=== PATIENT | female | born 1965 | race Caucasian/White ===

== ENCOUNTER → 2017-10-20 16:21 | Outpatient (CLI) | payer MEDICAID, SELFPAY ==
[2017-10-20 17:20] LABS: Absolute Lymphocyte Count 1.88 X10^3/ul (0.83-4.51); Absolute Neutrophil Count 2.3 X10^3/uL (2.0-7.7); Basophil# 0.04 X10^3/uL; Basophil% 0.8 % (0-1); Eosinophil# 0.14 X10^3/uL; Eosinophils% 2.8 % (0-5); Hemoglobin 13.2 g/dl (12.0-15.0); Lymphocyte # 1.88 X10^3/ul (4.0); Lymphocyte % 38.1 % (19-41); Mean Corp Hgb Conc 32.2 g/gl (32-36); Mean Corpuscular Hgb 31.5 pg (27.0-32.0); Mean Corpuscular Volume 97.9 fL (81-99); Mean Platelet Vol. 10.9 fl (6.2-12.0); Monocyte# 0.57 X10^3/uL; Monocyte% 11.6 % (0-10); Neutrophil % 46.7 % (47-70); Platelet Count 344 K/mm3 (150-450); RBC Distribution Width CV 12.8 % (11.6-14.6); RBC Distribution Width SD 44.2 fl (35.1-43.9); Red Blood Count 4.19 M/mm3 (4.2-5.4); White Blood Count 4.9 K/mm3 (4.4-11.0)
[2017-10-20 17:26] LABS: Vitamin D,25 Hydroxy 49.9 ng/mL (29.95-100.01)
[2017-10-20 17:36] LABS: ALB/GLOB Ratio 1.2 RATIO (0.9-2.4); AST(SGOT) 17 U/L (15-37); Alanine Aminotransfer ALT/SGPT 26 U/L (13-56); Alkaline Phosphatase 49 U/L (45-117); Anion Gap 10 (5-15); BUN 13 mg/dL (7-18); BUN/Creat Ratio 21.5 RATIO (10-20); Calcium,Total 9.1 mg/dL (8.5-10.1); Chloride 101 mmol/L (98-107); Creatinine, Serum 0.61 mg/dL (0.55-1.02); EST Glomerular Filtration Rate 110 mL/min (>60); Est Glom Filt Rate - Afr Amer 133 mL/min (>60); Globulin 3.4 g/dL (2.2-4.2); Glucose 79 mg/dL (74-106); Potassium 3.6 mmol/L (3.5-5.1); Protein, Total 7.4 g/dL (6.4-8.2); Sodium Level 138 mmol/L (136-145); Thyroid Stim Hormone (TSH) 2.21 uIU/mL (0.358-3.74)
[2017-10-20 17:59] LABS: POSITIVE COUNT NO; POSITIVE DIFFERENTIAL NO; POSITIVE MORPHOLOGY NO
== END ==
PROVIDERS: Family Provider Family Medicine Geriatric Medicine; PCP Family Medicine Geriatric Medicine; Visit Provider Family Medicine Geriatric Medicine
DX: R53.83 Other fatigue (principal); E55.9 Vitamin D deficiency, unspecified
CPT/HCPCS: 36415; 80053; 82306; 84443; 85025

== ENCOUNTER 2019-03-31 21:22 | Emergency (ER) | payer MEDICAID, SELFPAY ==
[2019-03-31 21:23] VITALS: BP 165/96; PULSE 113; RESP 18; TEMP 36.6; O2SAT 97; BMI 23.3
--- NOTE | 2019-03-31 21:37 | ED.VIS.PSYCH ---
History of Present Illness Chief Complaint: Anxiety Informant: Patient Onset: Weeks Context: Sudden Onset Conflict: Family, Work, Financial Timing: Continuous Current Severity: Moderate Maximum Severity: Severe Worsened by: Situational factors Relieved by: Nothing Associated Symptoms: Depressed, Change in Eating, Change in sleeping, Decreased Interest, Angry. Negative for: Guilt, Decreased Concentration, Hopelessness, Suicidal Thoughts, Easily distracted, Grandiosity, Flight of Ideas, Increased activity, Pressured Speech, Agitated Narrative: Patient is a 53-year-old woman with history of neuropathy, depression anxiety who had a job offer this past January. 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 Because of the medication she was declined the job per the patient. She returned the Adderall and other meds Dr. Horne. Patient voices frustration at Dr. Horne. Patient states she has had decreased appetite, trouble concentrating, trouble with sleep and anxious. She states she will lose her home. She was brought to the emergency room by her 18-year-old son. She has no suicidal homicidal thoughts. Prior similar symptoms: Yes Recent Illness/Hospitalization: No - Past Medical History (1) History of neuropathy Status: Acute (2) History of depression anxiety Status: Acute (3) Colitis Status: Chronic (4) RA (rheumatoid arthritis) Status: Chronic (5) Raynauds syndrome Status: Chronic Past Medical History - Allergies and Home Meds Allergies/Adverse Reactions: Allergies No Known Allergies Allergy (Verified 03/31/19 21:23) Primary Care Physician: Care Physician,No Primary [Primary Care Provider] - Prior records reviewed: Yes Surgical History: noncontributory Lives: With Family Smoking Status: Never smoker Alcohol: None Drugs: None Review of Systems General: Denies: Chills, Fever, Sweats Eyes: Denies: Visual changes - bilaterally, Blurred Vision - bilaterally, Diplopia ENT: Denies: Rhinorrhea, Sore throat Cardiovascular: Denies: Chest pain, Palpitations Respiratory: Denies: Dyspnea, Cough, Dyspnea on exertion Gastrointestinal: Denies: Abdominal pain, Nausea, Vomiting, Diarrhea, Melena, Hematochezia Genitourinary: Denies: Dysuria, Hematuria, Frequency Musculoskeletal: Denies: Myalgias, Arthralgias, Neck pain, Back pain, Swelling, Extremity Pain Skin: Denies: Rash, Abscess, Abrasions, Wounds Neurological: Denies: Headache, Weakness, Numbness Psych: Reports: Depression, Anxiety. Denies: Suicidal thoughts, Suicidal ideations Allergy: Denies: Uticaria, Swelling of the mouth Physical Exam Vital Signs/Narrative: Vital Signs Temp Pulse Resp BP Pulse Ox 03/31/19 21:23 97.8 F 113 H 18 165/96 H 97 Inital Vital Signs reviewed: Yes General: Well nourished, Well developed Head: Normocephalic, Atraumatic Eyes: Perrl, EOMI ENT: Moist mucous membranes, No rhinorrhea Neck: Supple, Nontender Cardiovascular: Regular rate, Regular rhythm, No murmurs Respiratory: No distress, CTA bilaterally, Chest nontender Abdomen: Soft, Nontender, Nondistended, Normal bowel sounds Back: Nontender, Normal Inspection Extremities: Nontender, No Edema Skin: Normal color, No rash Neurological: Alert, Oriented x3, Cranial nerves II-XII grossly intact, Normal Strength, Normal Sensation Psych: Logical sequential goal directed thoughts, No suicidal or homicidal ideation, Normal Appearance, Depressed, Labile. Negative for: Normal Stable Appropriate Affect, Poverty of Speech, Flight of Ideas, Incoherent thoughts, Suicidal thoughts, Homicidal thoughts, Hallucinations, Delusions, Paranoid Ideation Diagnostic/Tx/Re-eval Since she has right home she received Ativan for her anxiety. Case management was consulted to facilitate outpatient treatment. Also to assist with housing. ED Disposition - Plan for ED Patient: Disposition: Home or Assisted Living Diagnosis: Adjustment reaction with anxiety and depression Instructions: Depression Prescriptions: Lorazepam [Ativan] 1 mg PO TID #20 tab Prescription Printed Referrals: Care Physician,No Primary [Primary Care Provider] -
[2019-03-31] MEDS: LORazepam 1 MG Tablet PO (21:44)
--- NOTE | 2019-03-31 22:35 | CM.ED ---
SOCIAL WORK INFORMANT: DR. RUSH REASON FOR REFERRAL: MENTAL HEALTH-ANXIETY/DEPRESSION RECEIVED ORDER FOR CONSULT D/T PATIENT WITH SOCIAL STRESSORS, ANXIETY AND DEPRESSION. MET WITH PATIENT AND 18 Y/O SON IN ROOM. INTRODUCED ROLE AND REASON FOR REFERRAL. PATIENT REPORTS WAS TURNED DOWN FOR A JOB BACK IN JANUARY BECAUSE OF MEDICATIONS PRESCRIBED-ADDERALL, KLONOPIN, AND NEURONTIN. PATIENT STATES DR. ALLEN WAS PRESCRIBING. PATIENT STATES IS ON THE VERGE OF LOSING APARTMENT SHE IS UNABLE TO PAY RENT. PATIENT TEARFUL THROUGHOUT ASSESSMENT. PATIENT ADMITS TO SUICIDAL IDEATION AT TIMES, BUT REPORTS NO CURRENT THOUGHTS, PLAN, OR INTENT. PATIENT STATES FEELS SO OVERWHELMED AND THAT NO ONE WILL HELP. .PATIENT DOES NOT HAVE HEALTH INSURANCE AND REPORTS APPLIED FOR MEDICAID 2 DAYS AGO. ENCOURAGED PATIENT TO FOLLOW UP WITH [place] [employer] TOMORROW TO CHECK ON STATUS AND COMPLETE PHONE INTERVIEW FOR SERVICES, CONTACT NUMBER PROVIDED. DISCUSSED ONCE MEDICAID OBTAINED, FINDING TREATMENT FOR MENTAL HEALTH. PATIENT IN AGREEMENT WITH PLAN. DISCUSSED POSSIBLE REFERRAL TO THE [facility]. PATIENT'S SON SUPPORTIVE AND WILL ASSIST PATIENT. HEALTHY COPING DISCUSSED AND GOALS SET. PATIENT GIVEN CONTACT NUMBERS FOR CRISIS. THIS WORKER TO FOLLOW UP TOMORROW WITH PHONE CALL. MUCH EMOTIONAL SUPPORT AND ACTIVE LISTENING PROVIDED THROUGHOUT. PLAN: SAFETY PLAN HOME WITH SW TO FOLLOW UP TOMORROW. 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
[2019-03-31 22:49] VITALS: BP 166/97; PULSE 74; RESP 16; O2SAT 97
--- NOTE | 2019-04-01 10:31 | CM.ED ---
SOCIAL WORK SPOKE WITH PATIENT THIS MORNING. PER PATIENT, WAS APPROVED FOR MEDICAID. INFORMED PATIENT THIS WORKER WILL FOLLOW UP WITH [facility] ABOUT APPOINTMENT. SPOKE WITH [facility]. UPDATED ON REFERRAL. AYDEE TO FOLLOW UP WITH PATIENT. ROSAMARIA FLORES, CHANGE CONTROL MANAGER, JOCKEY ROOM CUSTODIAN.
== END 2019-03-31 22:52 | disposition home or self-care (01) ==
PROVIDERS: Emergency Provider Emergency Medicine
DX: F43.23 Adjustment disorder with mixed anxiety and depressed mood (principal); M06.9 Rheumatoid arthritis, unspecified; I73.00 Raynaud's syndrome without gangrene; G62.9 Polyneuropathy, unspecified; Z79.899 Other long term (current) drug therapy
CPT/HCPCS: 99283

== ENCOUNTER 2019-04-12 09:00 | Outpatient (RCR) | payer MEDICAID, SELFPAY ==
--- NOTE | 2019-04-12 10:15 | BH.SGPN.GN ---
Behaviors/Verbalizations/Mental Status: []Client alert and oriented, casual dress, hygiene tended to. Eye contact fair. Motor activity appropriate. Speech within normal limits. Affect labile, mood depressed and anxious. Thoughts linear, logical, no signs of hallucinations or delusions. Client Response/Progress/Benefit: []Client passive participant as evidenced by client providing limited input throughout discussion, however did appear to listen attentively to others. Client agreed with others that she experiences automatic negative thoughts. Client connected with the discussion about how distorted thought patterns can reinforce mental health symptoms. Client reported that she struggles with overgeneralizing. Client shared she recognizes when she overgeneralizes it ?blocks off other possibilities? and can keep her stuck. Progress limited given today is client?s first day in IOP. Appeared to benefit from increasing awareness of cognitive distortions and how they can impact emotions and behaviors. Client to continue IOP to decrease anxiety, increase healthy coping skills, and prevent decompensation. Narrative Note: []
--- NOTE | 2019-04-12 12:53 | BH.PSY.EVA_ITS ---
Psychiatric Evaluation - Initial Evaluation Initial Evaluation: Chief Complaint: [] I am not doing well. History of Present Illness: [] Patient is a 53-year-old female with a history of depression and anxiety who was brought to the [facility] emergency room on March 31, 2019 by her 18-year-old son. Her in September 2015 after a 20-year marriage which she describes as very good. Her psych admit followed his . 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 She has had worsening depression, anxiety and irritability since February 10, 2019. 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 The patient had a physical exam by an ASSISTANT MANAGER/EMBALMER and because she was taking Klonopin was labeled as benzodiazepine dependent. Due to this diagnosis her job offer was rescinded on February 10, 2019. So the patient has not been working since that day and is now without a job and has extreme financial stress. She is also very depressed due to the above experience. When the patient was labeled as benzo dependent she brought all of her Klonopin back to her primary care doctor and gave it back to him. So she has been on no Klonopin since February 2019. She says that she had been on the Klonopin 1 mg about twice a day since 2007. She had weaned down to about a half a pill or 0.5 mg 1 p.o. twice a day at the time that she return the Klonopin to her primary care doctor. The Klonopin was prescribed 1 mg p.o. 3 times daily but she states that she never took it that often. Since stopping her Klonopin she has felt very on edge, irritable, apathetic and having daily panic attacks. She also endorses a extremely depressed mood and crying off and on all day. She is having panic attacks twice a day unless she takes the Ativan that the ER gave her on March 31, 2019. They emergency room gave her Ativan 1 mg p.o. up to twice daily. They gave her 20 of these and she has 4 left. She is now taking a half of an Ativan daily but is having panic attacks. The Ativan does not work as well for her as the Klonopin did. She states that besides feeling panicky she has a feeling of impending dread also. She is worried that she may lose her apartment due to her inability to pay her rent. She is having trouble functioning in her activities of daily living. She describes increased irritability and depression indoor and also endorses worthlessness, hopelessness and guilt. She has anhedonia with with no motivation and is currently not enjoying anything she does. She has some initial insomnia and then after she gets to sleep she wakes up off and on but feels she does get about 6 hours total sleep per night. Her energy she describes as low and she is very tired during the day. She does take naps at times. Her concentration is decreased also. She denies any current suicidal ideation and has no plan. She denies any homicidal ideation ever. She denies any hallucinations or delusions. She is very anxious and and also is a worrier by nature. She denies any history of self-harm ever. Denies also OCD, eating disorder, trauma, and PTSD. She does admit to having thoughts that she would not care if she . Current Psychiatric Medications: Ativan 1 mg, she is taking 0.5 mg p.o. up to on ce a day. Zoloft 50 mg p.o. daily for the past 3 months. She has been on Zoloft at doses up to 150 mg for the past 2 years but she weaned herself down 3 months ago to 50 mg. She feels the Zoloft makes her lymphocytic colitis worse. She is on also Neurontin 300 mg p.o. 3 times daily [] Past Psychiatric History: [3 of 1 psych admission in 2016 for depression with suicidal ideation. She was there 17 days but she states that this was because she had a conflict with her son and threatened suicide. Her 28-year-old son does not C her granddaughter off and on depending on how much help and money he is getting firmer. She has no suicide attempts ever. She has no psychiatric provider. Her meds were given to her by her PCP Dr. Horne. Past psych medications include Adderall and Ritalin in the past for ADD diagnosed by her primary care doctor. She has taken no stimulants since February 10, 2019 but had been on them for about 10 years for ADD and she thinks may be for her depression. She is also taken Ambien in the past but it gave her strange side effects. She also took Effexor but had bad withdrawal when she tried to wean off it. She took Paxil in the past and BuSpar also. She was first depressed when she was in her mid 20s and she took her first medication for psychiatric reasons at age 27. [facility] to [facility] her on lithium but she refused it. She has never taken Lexapro Abilify or others. She has had counseling in 2016 before her but not for very long.] Substance Use History: None smoker, no marijuana use. No alcohol use. No other drug use. No rehab ever. [] Allergies: [] No known allergies Past Medical History: [He has history of neuropathy in her arms and legs not sure of cause, rheumatoid arthritis, fibromyalgia, lymphocytic colitis, raynaud's] Current medications: Psych medications only Family Psychiatric History: Mother at age 72 of congestive heart failure. Father at age 71 of colon cancer. Sure that may be bipolar. She has several other siblings who have depression and anxiety. No suicides in the family. She has a sister who is an alcoholic and a 28-year-old son who uses marijuana and possibly other drugs. She is a 32-year-old son who is alcoholic. [] Personal/Social History: [] She was born and raised in [place] and describes her childhood as I took care of everybody.She was the youngest of 5 siblings. She has 4 older sisters the closest 1 and age being 2 years older than her. She said her father was indirectly loving. Her mother was an alcoholic and was occasionally verbally abusive and neglectful of the patient. Her mother told her that she never wanted the patient to be born. There was frequently drunk and had many boyfriends around the house. The patient attended 16 different schools and this was due to their family moving all the time. She is uncertain why they moved. She graduated high school and got an associates degree in nursing. 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 She for the first time at age 22, duration 11 years. She had 2 sons with this marriage. Her second marriage was at age 33 and this marriage lasted 20 years until he of a brain tumor in 2016. This second marriage produced her youngest son who is 18 years old. SHe is not close to her sisters. For primary support the patient states she has no one. Legal History: Negative. No fpc or jail. No DUIs. Has current [employer] driver's license. [] Review of Systems: She has some pain due to her fibromyalgia and neuropathy and occasional diarrhea from her colitis. [] Vital Signs: [] Double and reviewed in nurse's notes Mental Status Examination: [] She is a 53-year-old female who appears normal for stated age and casually dressed and groomed with good hygiene. She is cooperative during the interview but has frequent tearful crying during the interview. She has no psychomotor agitation or retardation. Eye contact is good. Speech is normal rate and rhythm and fluent with no pressure. Mood is very depressed. Affect is somewhat flat and very tearful. Thought process is goal-directed and organized. Thought content: She does admit to having thoughts that she would not care if she . She has no evidence of suicidal or homicidal ideation. No evidence of hallucinations or delusions. Reality testing is intact. Cognition is average or above. Judgment intact. Insight some present. Impulsivity low. Labs and testing: Patient has had her thyroid checked numerous times in the past and it has always been normal. She does have a history of low vitamin D. Summary: [] Diagnoses: [] [place] I: [] Major depressive disorder recurrent severe without psychosis; generalized anxiety disorder; benzodiazepine withdrawal [place] II: [] Deferred [place] III: [] Rheumatoid arthritis, neuropathy, fibromyalgia, lymphocytic colitis [place] IV: Primary support, financial and job issues Plan: [She will do the IOP program at [facility] as the education, support, structure, individual and group therapy will hopefully benefit the patient and prevent exacerbation of her symptoms which might require hospitalization. The risks options possible side effects and complications of the medications were discussed with the patient and she understands and accepts these. She understands that anyone who takes Klonopin will become physically dependent on it but that is not a reason for a job termination. She agrees to stop the Ativan and restart the Klonopin at 0.5 mg p.o. twice daily. Discussion was had that benzodiazepines need to be weaned very slowly over several months.. She understands the risk of seizure and possibly even if she stops her benzos cold turkey again. Due to the Zoloft aggravating her lymphocytic colitis the patient will stop the Zoloft in 2 weeks. She will start now Cymbalta 30 mg p.o. daily. The hope is that this will help her depression, anxiety and her pain issues. In addition the patient is given a prescription for vitamin D2 50,000 IUs p.o. weekly for 3 months and then we will recheck her vitamin D. She felt safe during the interview and if it any time in the future she does not feel safe she will tell us at the IOP program or go to the emergency room.]
--- NOTE | 2019-04-12 13:17 | BH.DR.ITP ---
Initial Treatment Plan - Patient Information Visit Information: ADMISSION DATE: EXPECTED LOS: 4-6 weeks - Problems/Symptoms Problem #1:: Depression Symptom:: sadness, crying, anhedonia, thoughts of Problem #2:: Anxiety Symptom:: feeling of impending doom, jittery, rumination
--- NOTE | 2019-04-12 14:10 | BH.COMM ---
Communication Note - Communication with Client Communication Note: Completed intake paperwork with client today. Completed the [place] Suicide Severity Scale (CSSR-S) Lifetime Recent to assess for suicidal risk. Client denies history of suicide attempts, but she reported about a year ago she took ?some sleeping pills? and drove. Client denied this as a suicide attempt as she did not want to . Client denies any history of self-injurious behaviors or interrupted suicide attempts. Client reported in the past month she has had wishes of , but denies any active suicidal ideations, plan, or intent. Client admits to a history of suicidal ideations with plan and access to methods, but reported her son kept her from acting on these thoughts. Client reports these thoughts have not occurred in several months. Client reports in the past month her wishes of occur daily, which is consistent with her lifetime. Client reported her wishes of last no more than a few seconds and they are controllable with difficulty. Client reported her youngest son is her reason to live. Per the CSSR-S client has a low risk for suicide. Client's suicidal lethality will be continued to be monitored throughout the program. Client willing to plan for safety. Client denies access to any weapons or stockpiles of medication. Client feels able to maintain safety.
--- NOTE | 2019-04-12 17:03 | BH.MTP ---
Master Treatment Plan - Patient Information Program Physician:: Dr. Mona Durant Primary Therapist:: BRANDON Joyce - Psychiatric Diagnoses Psychiatric Diagnoses:: Major depressive disorder recurrent severe without psychosis; generalized anxiety disorder; benzodiazepine withdrawal Diagnosis Code(s):: F33.2 - Estimated LOS Estimated LOS (in weeks):: 6 Problem/Goal #1 - Problem/Goal #1 Stated Goal:: Client will reduce depressive symptoms, feelings of worthlessness, isolation, and anhedonia as evidenced by self-report and DSM 5 cross-cutting depression scales. Description of Barriers: Lack of resources/basic needs being met, poor emotion regulation, unhealthy coping strategies, relationship conflicts, poor communication skills. Functional Impact: Pt often Isolates and avoids others or reacts in anger which results in increased conflict. Impacting ability to function at base and complete daily responsibilities. Impacts ability to trust others. Impacts ability to be motivated to pursue expanding social support network. Goal Relevant Strengths/Supports: Pt is intelligent, hard working, motivated, and able to empathize with others - Objectives Objective #1 Stated Objective: Client will identify 2-3 coping strategies to use when feeling overwhelmed. Interventions: Through group and individual counseling will help client process triggers to increased symptoms, and then identify ways to manage these feelings and thoughts. Therapist will also work on helping client feel less isolated and understand better behaviors and escalating tendencies. Discharge Criteria: Client will have met this goal when can safely use 1-2 coping strategies when feeling overwhelmed with depressive symptoms. Target Date: 05/24/19 Review Date: 05/10/19 Objective #2 Stated Objective: Identify at least 2-3 negative self-talk messages used to reinforce feelings of hopelessness and replace thoughts with positive messages. Interventions: Through individual and group counseling will help client identify distorted, negative beliefs about self and replace with more realistic, affirmative messages. Discharge Criteria: Client will have achieved this goal when can verbalize at least 2 negative self-talk messages and effectively replace those thoughts with affirmative messages. Target Date: 05/24/19 Review Date: 05/10/19 Problem/Goal #2 - Problem/Goal #2 Stated Goal:: Client will increase anxiety management and decrease panic as well as anger/irritability as evidenced by reduction in DSM cross-cutting scales. Description of Barriers: Lack of resources/basic needs being met, poor emotion regulation, unhealthy coping strategies, relationship conflicts, poor communication skills. Functional Impact: Pt often Isolates and avoids others or reacts in anger which results in increased conflict. Impacting ability to function at base and complete daily responsibilities. Impacts ability to trust others. Impacts ability to be motivated to pursue expanding social support network. Goal Relevant Strengths/Supports: Pt is intelligent, hard working, motivated, and able to empathize with others - Objectives Objective #1 Stated Objective: Client will learn 2 triggers and 2 coping skills to manage anxiety independent of medications. Interventions: Therapist will help client identify times of day, or specific thinking patterns that tend to increase anxiety. Discharge Criteria: Client will have met this goal when reports more good days than bad, and a significant reduction in anxiety (able to cope with anxiety using at least 2 new skills). Target Date: 05/24/19 Review Date: 05/10/19 Objective #2 Stated Objective: Client will identify 2-3 triggers and 2-3 new ways to navigate stressful situations rather than becoming panicked or irrational and losing temper. Interventions: Through individual and group counseling pt will learn more responsible and effective ways to manage emotions in stressful situations and feel more confident in herself. Discharge Criteria: Client will have met this goal when he is able to describe less than 2 panic attacks or irrational reactions in a week, and at least 2 new ways to handle these stressful situations. Target Date: 05/24/19 Review Date: 05/10/19
--- NOTE | 2019-05-10 17:44 | BH.MDN_ITS ---
Multi-Disciplinary Note - Note 45-min Individual Time Started:: 09:16 Date: 05/10/19 Purpose of session/treatment goals addressed:: Purpose of this session was to assess current symptoms, stressors, and treatment goal progress. Additional purpose was to address treatment plan goals 1 and 2. Eye Contact:: Good Motor Activity:: Restless Appearance:: Neat, Casual Speech:: Appropriate Mood:: Anxious, Irritable, Depressed Affect:: Congruent Thoughts:: Linear, Logical, No evidence of hallucinations/delusions noted Staff Interventions:: Therapist asked open-ended and furthering questions to elicit additional information regarding current symptoms, stressors, and treatment goal progress. Provided empathic responses and allowed pt to vent frustrations to provide emotion validation. Gently challenged pt use of cognitive distortions impacting relationships and ability to communicate needs with others. Utilized MT techniques to engage pt in conversation about improving ability to feel supported and continue to work on addressing mental health related concerns in IOP setting. Client Response:: Pt was receptive of session and willing to engage in discussion throughout. At times pt became tearful when discussing feeling pro viders treat her differently now that she is on Medicaid and no longer has commercial insurance. Provided an example of feeling she had been ignored and belittled by staff at her eye doctor appointment. Expressed several distorted thoughts related to personalization and indicated beliefs that her provider had intentionally sent in the wrong rx as they did not like her because she had expressed concerns related to services she had received from them in the past. Pt went on to indicate believing that providers often do not realistically consider what stressors their client?s may be faced with. Shared feeling past experiences have taught her that providers have unrealistic expectations and often times double standards. Pt vented that she feels she is not able to be honest about how she is really doing in regard to her mental health as she feels being open about having negative thoughts or struggling is frowned upon and that people only want to hear when you are doing well. She was resistant to challenging these thoughts and expressed ?people just don?t realize what it?s really like to struggle anymore?. Additionally, shared concerns regarding securing psychiatry services following IOP discharge. Pt receptive of several options provided by this therapist and indicated willingness to call the various agencies provided to see whom she would be able to schedule with quickest as she is returning to work the second week in May. Risks/Concerns:: None noted. Denies SI, plan, or intent as of this date 05/10/19. Future-oriented Progress Toward Goals/Plan:: Progress noted. Overwhelmed and expressed feeling frustrated and alone due to limited supports. Responded well to problem-solving with therapist strategies for improving her ability to get needs met and better feel supported in therapeutic environment. Receptive of encouragement and reminders of progress made thus far. Indicated reluctance to trust providers due to feeling that they do not truly understand or are not willing to make pt needs a priority, however open to challenging this mindset. Pt to continue in IOP tx to improve emotion stability, reduce depression and agitation, as well as prevent decompensation.
== END 2019-04-12 23:59 ==
LOC: BHIOP 09:00
PROVIDERS: Referring Provider Psychiatry & Neurology Psychiatry; Visit Provider Psychiatry & Neurology Psychiatry
DX: F33.2 Major depressive disorder, recurrent severe without psychotic features (principal); F41.1 Generalized anxiety disorder; F13.239 Sedative, hypnotic or anxiolytic dependence with withdrawal, unspecified; M79.7 Fibromyalgia; G62.9 Polyneuropathy, unspecified; M06.9 Rheumatoid arthritis, unspecified; K52.832 Lymphocytic colitis; Z79.899 Other long term (current) drug therapy
CPT/HCPCS: 90792; H2012

== ENCOUNTER 2019-04-14 09:00 | Outpatient (RCR) | payer MEDICAID, SELFPAY ==
--- NOTE | 2019-04-13 10:24 | BH.NOTE ---
BH: Inpatient Note - Notes Behavioral Health Inpatient Note: Per written order from Dr. Lou, the follow prescription was called into [facility] pharmacy in [place], [place]: Cymbalta 30mg PO daily, #30, NO refills Klonopin 0.5mg, 1 tab PO BID, #60, NO refills Vitamin D2 50,000IU, 1 PO weekly, #4, NO refills Damon Sánchez, MSN, RN
--- NOTE | 2019-04-14 09:04 | BH.SGPN.GN ---
Behaviors/Verbalizations/Mental Status: []Client alert and oriented, casual dress, hygiene tended to. Eye contact good. Motor activity appropriate. Speech within normal limits. Affect congruent, mood euthymic and positive. Thoughts linear, logical, no signs of hallucinations or delusions. Reviewed client?s symptom tracker, no signs of suicidal ideation, plan, or intent as of today. Client Response/Progress/Benefit: []Pt was a passive participant in group discussion, sharing when elicited by therapist, appeared to listen attentively to others. Emotion for today is hopeful and guarded. Pt reported current stressors are financial problems and feeling lonely. Pt stated she has isolated herself for the past two months, which has resulted in feeling extremely lonely. Pt noted progress in being able to complete a task she started this summer. Pt stated she has been struggling with staying on task and lacking motivation, but was able over the weekend to complete the project which resulted in her feeling accomplished. 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 Pt stated she is feeling excited about the opportunity, but is also hesitant to get too excited until she officially starts the job. Progress noted with pt report of improved focus and concentration which helped her accomplish a goal. Continued IOP tx recommended to increase use of healthy coping skills, prevent decompensation, and identify and challenge distorted thoughts. Narrative Note: []
--- NOTE | 2019-04-14 10:48 | BH.NA_ITS ---
Physical Data - Height/Weight Height: 1.6 m Weight:: 59.874 kg Weight in Pounds: 132.0 lbs Current Medication Compliance - Medication Compliance Do you take your medication as prescribed?: No Do you need assistance with taking medication?: No Have you had side effects from medication?: No Nutritional History - Appetite Nutritional Instructions:: If client shows signs of a swallowing problem, weight change of 10 pounds or more in the last month, or is on a diabetic diet, the physician will review and request a dietitian consult, as appropriate. All unintentional weight loss will be referred to the physician for decision on need for dietitian consult. Describe your appetite:: Fair Have you noticed a change in your eating habits lately?: No Additional nutritional information:: 20# weight gain which she attributes to Zoloft Functional Assessment - Sleep Pattern Describe any problems with sleeping: endorses difficulty falling and staying asleep - Activities Motor Activity:: Functional Sensory/Communication Assess - Hearing Problems Do you have any hearing problems?: Adequate - Communication Problems Do you have difficulty understanding what people are saying?: No Do you have trouble putting your thoughts into words or expressing what you want to say?: No Do people ever have trouble understanding what you say?: No What is your primary language?: Citizen Of [place] Learning Assessment - Learning Barriers Learning Barriers:: Ready to learn Medical Problems/History - Pain Assessment Do you have acute or chronic pain?: Yes - Female Reproductive Do you think you may be ?: No - Family History Family History: Family History (Last Updated 07/28/17 @ 12:25 by Kathy Cohen) Mother Arthritis Father Colon cancer Heart disease Surgical History - Surgical History Have you had any surgeries? If so, list type and date:: No Substance Abuse - Substance Abuse Please describe substance abuse in the last 30 days:: Denies ETOH, tobacco, and illicit substance use. Mental Status Summary - Mental Status Significant Findings/Observations on Appearance and Mood:: Mattie is A&Ox4, cooperative with interview, and makes fair eye contact. Steady gait. Normal activity while seated. Appropriate hygiene and grooming, casually dressed. Speech is clear and of normal rate and volume. Moderate depression and anxiety. Intermittently tearful with mood congruent affect. No symptoms of delusions. Denies hallucincations, HI, and SI. Logical associations and normal process, though client is somewhat tangential in her communication. Suicide Assessment - Suicidal Ideation Are you currently or have you been suicidal in the past?: Yes Suicidal Intentional Rating Scale (SIRS): Suicidal thoughts (past) Physician Notification: If Active suicidal thoughts/Will not contract for safety is checked, contact physician and document in the Physician Notification section below. Past Psychiatric History - MH Treatment Hx Past Psychiatric Medications:: klonopin, cymbalta, zoloft, ativan ECT Therapy Details:: N/A Describe (age, circumstance, etc) any past hospitalizations: 2016: [facility] Fall Risk Assessment - Age Age: Less than 60 - Mental Status Mental Status: Willing & able to ask for assistance when needed - Physical Status Physical Status: No problems - Impairments Impairments: None - Elimination Elimination: Continent AND independent - Gait or Balance Gait or Balance: Walks independently - Hx of Falls History of falls in the past 6 months: No known history - Medications/Substances Psychotropics:: Antidepressants, Anxiolytics (e.g. benzodiazepines) Medications/substances used within the past 24 hours or ordered to administer: 1-2 of the medications/substances listed above - Total Score Total Points:: 1 RN Summary of Impressions - Impressions Recommendations: Include psychiatric and medical issues, treatment planning recommendations, and discharge planning needs. 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 - Level of Care How do the client's current symptoms and functional deficits support need for this level of care?: Mattie notes severe decompensation of her mental health since January 2019 after she was fired from her job as a result of her benzo use, which was chronic. She has not sought treatment for her mental health since 2016 due to mistrust of providers. Client notes that she has been irritable, has low energy, and has not been completing ADLs; she also describes intermittent panic attacks. She has limited, practically no, social support as she is a , has complicated relationships with her sisters, and is estranged from 2:3 sons since the loss of her . Mattie notes feelings of helplessness and frustration with her doctors for taking her off of her ativan without weaning (she did experience significant withdrawals). IOP will promote gains and prevent further decompensation.
--- NOTE | 2019-04-14 11:15 | BH.SGPN.GN ---
Behaviors/Verbalizations/Mental Status: []Client alert and oriented, neatly dressed and groomed. Eye contact good. Motor activity appropriate. Speech within normal limits. Affect constricted, mood irritable. Thoughts linear, logical, no signs of hallucinations or delusions Client Response/Progress/Benefit: []Client responded well to session, attentive and contributing to discussion. Client participated in group activity and able to connect how managing anger takes patience, calming skills, and acceptance. Group identified the benefits of effectively managing anger which included; advocating for oneself, reducing consequences, reducing mental health symptoms, and expressing one?s needs. Client reported anger is not good or bad, ?it?s about how we handle it.? Client shared she feels most angry when someone repeatedly disrespects her boundaries. Client helped the group identify coping skills to more effectively manage anger which included; deep breathing, self-compassion, taking a step back, DDD, challenging perspective, and using S.T.O.P. Client appeared to benefit from gaining coping skills to more effectively manage anger. Will continue IOP level of care to prevent suicidal ideation and to reduce the intensity of anger and depressive symptoms.?
--- NOTE | 2019-04-14 14:56 | BH.MDN ---
Multi-Disciplinary Note - Note 45-min Individual Time Started:: 12:16 Date: 04/14/19 Purpose of session/treatment goals addressed:: Purpose of this session was to establish rapport with pt, gather additional information regarding pt current functioning and changes since IOP admission, discussed symptoms and stressors impacting mental health. Other topics including development of treatment goals. Eye Contact:: Good, Other - crying at various points throughout session Motor Activity:: Restless Appearance:: Casual Speech:: Tangential Mood:: Anxious, Irritable, Depressed Affect:: Labile Thoughts:: Linear, Logical, Flight of ideas Staff Interventions:: Therapist asked open ended and furthering questions to gather additional information regarding pt's symptoms, current stressors, as well as events leading to IOP admission and any changes since IOP start date. Worked with client to explore treatment goals to address in IOP. Therapist used strengths perspective to build rapport and help pt identify personal positives and resilience factors. Therapist used empathic responses to provide emotional validation. Applied OK techniques to explore coping strategies that have helped in the past, potential treatment barriers, and establish IOP treatment goals. Client Response:: Pt open to meeting with this therapist and engaged throughout session. She was often tearful when discussing various psychosocial stressors and areas of focus for treatment goal development. Pt shared ?I?m just still really guarded? when discussing her adjustment to the treatment environment and discussed that she has had negative experiences with providers and community agencies in the past. 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 Pt reported feeling nervous that she will again be discriminated against if klonopin and Effexor are detected. Pt reported knowing she needs to be weened off of these medications but continues to struggle with a desire to stop taking it all at once despite experiencing withdrawal sx in the past. Expressed being angry about her circumstances and struggling with medication issues in the first place. Shared feeling targeted. Pt and therapist discussed at length the importance of medication monitoring and therapist reassure pt that she would be supported by the IOP tx team as she works to decrease reliance on medications and establish a stronger foundation for internal coping mechanisms. Throughout discussion Pt struggled with remaining on one topic and often jumped from one topic of discussion to another based on loose associations, ranging from tearfulness to laughing to becoming agitated. Additional stressors identified included limited support system, lack of empathy or support from her family causing increased tension in relationship with pt sons and sister, finances, and difficulties in managing mental health symptoms. Pt worked with therapist to begin development of treatment goals, though often struggled in doing so as pt continued to revert to venting her frustration regarding current stressor. Shared that this program ?feels like the one glimmer of hope I have?. Pt expressed wanting to increase ability to regulate her emotions, specifically anger, improve boundary setting, and increase her support network. Risks/Concerns:: No risks or concerns at this time. Pt indicates a score of 1/5 for suicidal ideation on daily sx tracker at start of day; however, at time of individual session pt reports I'm feeling better than I was earlier and denies any current SI, plan, or intent at this time. Reports ability to maintain safety. Progress Toward Goals/Plan:: Pt's third day of IOP, therefore limited to no progress currently. Reports this is her first group therapy experience, so she is still adjusting to the environment but is hopeful she will be able to make progress in improving her mental health and ability to better regulate emotions. Pt endorses a depressed and anxious mood, negative thinking, passive thoughts of , crying spells, increased irritability, and limited supports. Will continue IOP to prevent decompensation, improve daily functioning, and increase mood stability. Time Stopped:: 13:06
--- NOTE | 2019-04-19 09:00 | BH.SGPN.GN ---
Behaviors/Verbalizations/Mental Status: [] .Eye contact is good. Motor activity is appropriate. Appearance is casual. Speech is Appropriate. Mood is depressed. Affect is flat. Thoughts are linear and logical. No evidence of psychosis. Reviewed daily check in sheet and no reports of suicidal thoughts or intent. Client Response/Progress/Benefit: [] Pt was an active participant in group discussion on the benefits of anxiety, boundary setting, and radical acceptance. Emotion for today is apprehensive. Shared being hopeful about an upcoming job. Discussed how she is still anxious and apprehensive due to past experiences however is trying to remain optimistic and not catastrophize. Shared that she is focusing more on not people pleasing and setting up boundaries with others. Discussed how this will positive impact her life and MH symptoms. Organized and re-arranging her house which helps with her anxiety as well. Improved mood. Progress noted per pt report. Will continue in IOP to maintain gains, prevent decompensation, and increase healthy coping skills. Narrative Note: []
--- NOTE | 2019-04-19 10:10 | BH.SGPN.GN ---
Behaviors/Verbalizations/Mental Status: []Client alert and oriented, casual appearance. Eye contact fair. Motor activity appropriate. Speech within normal limits. Affect congruent, mood euthymic. Thoughts linear, logical, no signs of hallucinations or delusions. Client Response/Progress/Benefit: []Pt was an active participant in group discussion. Processed quote of the day with peers. Group discussed the MH benefits to having open and clear communication with support and providers. Pt stated effective communication is important if want to get intended results because effective communication can lead to a resolution. Pt stated other people can be a barrier to effective communication if the other person is unwilling to listen or communicate. Group also discussed the barriers that tend to impact clear and open communication which include: fear, distorted thoughts, predicting the future, misinterpretations, non-verbal communication, and assumptions. Pt was attentive during psycho-education on communications styles (aggressive, passive, passive-aggressive, and assertive). Also provided input on the pros and cons to each communication style. Pt stated she could connect with all the different communication styles. Pt reported she has been passive-aggressive towards others, which she recognizes does not solve problems. Pt seemed to benefit from increased insight on how the way she communicates impacts her mental health. Pt to continue IOP level of care to increase generalization of healthy coping skills, identify and challenge distorted thoughts and prevent decompensation. Narrative Note: []
--- NOTE | 2019-04-19 11:10 | BH.SGPN.GN ---
Behaviors/Verbalizations/Mental Status: []Client alert and oriented, neatly dressed and groomed. Eye contact good. Motor activity appropriate. Speech within normal limits. Affect congruent, mood anxious. Thoughts linear, logical, no signs of hallucinations or delusions Client Response/Progress/Benefit: []Client active participant AEB providing input throughout and engaging in activity. Client reported she tries to be an assertive communicator, but shared ?when assertive doesn?t work I become aggressive.? Client reported when she is aggressive, she feels guilt and she isolates and ruminates. Client stated she wants to work on managing her emotions better to prevent herself from getting aggressive. client engaged in activity and able to connect how ineffective communication negatively impacts mental health and relationships. Client identified her communication goal which is to focus on accepting that she must be willing to negotiate when communicating to her son. Client seemed to benefit from increased insight into how her communication style impacts her mental health and relationships. Client progressing as shown by her reduced irritability during group sessions. Will continue IOP tx to prevent decompensation and improve emotional regulation skills.
--- NOTE | 2019-04-22 09:10 | BH.SGPN.GN ---
Behaviors/Verbalizations/Mental Status: [] Eye contact is good. Motor activity is appropriate. Appearance is casual. Speech is Appropriate. Mood is depressed. Affect is flat. Thoughts are linear and logical. No evidence of psychosis. Reviewed daily check in sheet and no reports of suicidal ideations or intent Client Response/Progress/Benefit: [] Pt was an active participant in group discussion. Emotions for today is distracted. Discussed boundary setting and the benefits that it has had on her mental wellness. States I don't need to be around them. Shared how she felt manipulated and used by them and was often dragged into their drama. Has noticed improvement in mood since boundaries were set. Admits that she has urges to call due to limited support however realizes that the relationship was toxic. Progress noted. Benefited from group support, encouragement, and feedback. Will continue in IOP to prevent decompensation, stabilize anxiety, and increase healthy coping skills. Narrative Note: []
--- NOTE | 2019-04-22 10:10 | BH.SGPN.GN ---
Behaviors/Verbalizations/Mental Status: []Client alert and oriented, casually dressed and groomed. Eye contact good. Motor activity appropriate. Speech within normal limits. Affect congruent, mood euthymic. Thoughts linear, logical, no signs of hallucinations or delusions. Client Response/Progress/Benefit: []Client active participant as shown by client?s contribution to discussion and engagement in activity. Client agreed with peers that self-care is important because ?if you don?t care for you, there?s nothing left to give.? Client reported self-care prevents burnout and improves mental health. Client participated in the discussion of the common myths about self-care including self-care is selfish, self-indulgent, take too much time, and is always fun. Client gave examples of self-care activities such as setting boundaries, taking medication, going to therapy, and admitting one needs help. Client reported ?self-care doesn?t always feel good in the moment? but it can have long-term benefits. Client engaged in activity and able to connect how sometimes to make self-care a priority, a person must set boundaries in other areas of their lives. Client seemed to benefit from increased awareness of the importance of self-care. Client showing progress AEB her improved engagement in group session and reduced irritability. Will continue IOP level of care to improve emotional regulation and further reduce intensity of symptoms.
--- NOTE | 2019-04-22 11:15 | BH.SGPN.GN ---
Behaviors/Verbalizations/Mental Status: [Client alert and oriented, casually dressed and appropriately groomed. Eye contact good. Motor activity appropriate. Speech within normal limits. Affect congruent, mood agitated, depressed. Thoughts linear, logical, no signs of hallucinations or delusions. ] Client Response/Progress/Benefit: [Pt responded well to session, actively listening and willing participant in both discussion and worksheet activity. Worked with the group to further process the activity and discussion on the importance of self-care in management mental health and preventing burnout. Pt engaged in the discussion and self-assessment of the different areas of self-care, noting she has always struggled with having time/ability to practice self-care as she has always pushed her own needs down and focused her energy on caring for others. Pt reports connecting with discussion on the mental health effects of not making self-care a priority. Pt set a goal to improve in the area of social self-care as she has few dependable supports and would like to begin going ot community events to attempt to expand in this area. Pt appeared to benefit from increasing awareness of how she can improve her self-care balance. Pt progress noted in her ability to identify impact current lack of self-care activities has had on mental health and maintaining depression, however struggles with ongoing externalization and focusing on other?s impacting her self-care practices. Recommended continued IOP to continue to reduce depression, increase emotion regulation skills, and prevent decompensation.] Narrative Note: []
--- NOTE | 2019-04-23 09:02 | BH.SGPN.GN ---
Behaviors/Verbalizations/Mental Status: []Client alert and oriented, casual dress, hygiene tended to. Eye contact fair. Motor activity restless AEB fidgety with hands. Speech within normal limits. Affect congruent, mood anxious. Thoughts linear, logical, no signs of hallucinations or delusions. Reviewed client?s symptom tracker, no signs of suicidal ideation, plan, or intent as of today. Client Response/Progress/Benefit: []Pt was an active participant in group discussion, providing input and openly processing with the group. Emotion for today is nervous. Pt noted mental health positive as cooking her own meals two times this past week. Pt stated since her mental health worsened about two months ago she hasn't had the motivation to cook anything. Pt reported she felt accomplished for cooking for herself and proud that she tried to cook different kinds of meals versus going to her comfort zone. Pt identified another positive as getting up early before IOP today and walking her dog. Pt stated she noticed getting moving this morning improved her mood. Pt reported current stressor is managing her anxiety while she waits for her new job to start next month. Progress noted in application of using opposite actions skills to increase activity. Continued IOP tx recommended to maintain gains, prevent decompensation, and continue to utilize healthy coping skills. Narrative Note: []
--- NOTE | 2019-04-23 10:18 | BH.SGPN.GN ---
Behaviors/Verbalizations/Mental Status: [Client alert and oriented, casual dress, hygiene tended to. Eye contact good. Motor activity appropriate. Speech within normal limits. Affect congruent, mood euthymic, agitated. Thoughts linear, logical, no signs of hallucinations or delusions. ] Client Response/Progress/Benefit: [Pt receptive of session, engaged throughout. She did well to work with the group to reflect on the quote and discussed the ways in which perspective can impact mental health and ability to make personal progress in life. Pt indicated that a lack of resources, support, and socioeconomic status can contribute to negative perspective. She identified that this may result in increased anxiety and self-destructive behavior. Expressed that a positive perspective can improve overall mental health and relationships with others. Pt did well to engage in the challenge activity and was an active participant in identifying how perspective impacted ability to complete the task at hand. Pt appeared to benefit from increasing understanding of mental health benefits of a positive perspective and potential consequences to progress when perspective is negative or pessimistic. Pt progress noted in her ability to better manage stressors and report of decreased depression. Recommended continued IOP tx to promote continued progress, further promote application of skills learned, and prevent decompensation.] Narrative Note: []
--- NOTE | 2019-04-23 14:58 | BH.MDN_ITS ---
Multi-Disciplinary Note - Note 45-min Individual Time Started:: 11:21 Date: 04/23/19 Purpose of session/treatment goals addressed:: Purpose of this session was to assess pt current symptoms, stressors, and treatment progress. Another purpose was to provide psychoeducation regarding the importance of self-care in promoting emotion regulation. Additional topics included: healthy boundary setting Eye Contact:: Good, Other - tearful at times Motor Activity:: Restless - pt moving around in chair, often putting her feet on chair and crouching Appearance:: Casual Speech:: Appropriate Mood:: Depressed Affect:: Congruent Thoughts:: Linear, Logical, No evidence of hallucinations/delusions noted Staff Interventions:: Therapist used open-ended and furthering questions to gather additional information regarding current stressors, symptoms, and treatment progress. Therapist used reflective listening, supportive feedback, and empathic responses to validate pt frustrations and normalize concerns/anxieties. Provided psychoeducation on impact of engaging in self-care on promoting emotion regulation. Therapist utilized strengths-based approaches to commend pt on areas of progress and continue to promote healthy change behaviors. Therapist aided pt in identifying current barriers impacting self- care and discuss with pt areas of personal interest she could use to create a small goal for increasing personal self-care practices. Client Response:: Pt responded well to session, willing to openly discuss areas of progress as well as ongoing stressors. 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 Pt discussed relief that next month she will have a steady source of income but continues to stress about how she will meet her financial needs in the meantime. 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 Went on to discuss ongoing sadness and frustration regarding the distance of her two older sons, as pt notes missing her granddaughter. Able to recognize the benefits of this boundary on her mental health and ability to work on improving emotion regulation, despite disappointment, as her older sons can be triggers for pt anger. Went on to share that despite increased positivity, she has felt exhausted and stressed out as she has been busy with various other responsibilities. Pt noted that when not at [facility], she has spent most of her time going to various doctor appts, cleaning, and running other errands. When asked what she does for self-care, pt indicated not knowing the last time she did something just because she finds it enjoyable. Able to identify benefits of self-care on improving emotion regulation, specifically anger, however reports difficulties in identifying practices she might connect with. Noted that most of the things she used to do for fun were things she and her had done together and are too difficult for her to do since he . Pt and therapist spent remainder of session exploring potential interests and discussing ways she can begin to find activities she enjoys. Pt shared previously enjoying jump rope and that she has a nice jump rope at home she has been wanting to use but has not had the motivation or time to do so. Willing to creat a small goal of setting aside 10 minutes to jumprope this weekend. Additionally reports wanting to focus on identifying ways she can improve spiritual self-care in future sessions. Risks/Concerns:: No risks or concerns at this time. Pt denies any active SI, plan, or intent as of this date 04/23/19. Progress Toward Goals/Plan:: Progress noted. Pt reports increased hope and positivity since beginning the IOP program. She reports that she has been practicing weighing the pros and cons of various decisions which has helped her to keep from lashing out or engaging in conflict when stressed or disappointed. Pt additionally discussed feeling she has made progress to accept her current circumstances and apply rational problem solving skills to improve her ability to cope/manage stressors. Despite these areas of progress, pt continues to struggle significantly with emotion regulation, externalization of stressors, and distorted thinking patterns. Pt reports she has limited supports which continues to impact her self-esteem, results in increased loneliness, and creates difficulties in pt ability to cope with stressors. Pt would benefit from continued IOP tx to further increase mental health understanding, improve emotion regulation skills, expand support network, and prevent decompentation. Time Stopped:: 12:05
--- NOTE | 2019-04-26 09:10 | BH.SGPN.GN ---
Behaviors/Verbalizations/Mental Status: [] Eye contact is good. Motor activity is appropriate. Appearance is casual. Speech is Appropriate. Mood is depressed. Affect is flat. Thoughts are linear and logical. No evidence of psychosis. Reviewed daily check in sheet and no reports of suicidal ideations or intent. Client Response/Progress/Benefit: [] Pt was an active participant in group discussion. Emotion for today is curious. Daily symptom tracker shows 3/5 for anxiety and 2/5 for panic and hopelessness. Shared that she is completing more self-care as well as being more active. Reports spending time at the park and cooking which both have MH benefits. Notes decreased overall anxiety and stress. Increased use of external and internal coping skills. Maintaining boundaries which is also helping MH. Progress noted per pt report. Benefited from group support, encouragement, and feedback. Will continue in IOP to prevent decompensation, decrease anxiety, and increase healthy coping skills. Narrative Note: []
--- NOTE | 2019-04-26 10:07 | BH.SGPN.GN ---
Behaviors/Verbalizations/Mental Status: []Client alert and oriented, neatly dressed and groomed. Eye contact good. Motor activity appropriate. Speech within normal limits. Affect congruent-tearful when talking about loss of support, mood anxious. Thoughts linear, logical, no signs of hallucinations or delusions. Client Response/Progress/Benefit: []Client active participant during group discussion AEB client contributing to discussion. Client commented on the quote and shared ?safety nets help us bounce back, they don?t stop you from falling.? Client reported social support is needed in bettering one?s mental health, but it is important to have realistic expectations for support. Client shared ?we expect our supports to be perfect or have all the solutions? which causes more problems. Client helped group brainstorm potential consequences of not having a support system. Group identified benefits of social support as building trust, less anxiety, less loneliness, different perspective, sense of purpose, resources, hope, and accountability. Client shared ?support goes two ways? and that it is possible to teach someone to be a better support. Client was engaged during the group activity and was providing positive encouragement. Appeared to benefit from gaining awareness of barriers that keep people from seeking social support as well as identifying the benefits of increasing support. Client progressing AEB her decreased irritability during sessions and reduced SI. Will continue IOP tx to promote mood stability, increase use of healthy coping skills, and reduce negative thinking.
--- NOTE | 2019-04-26 11:08 | BH.SGPN.GN ---
Behaviors/Verbalizations/Mental Status: [Pt alert and oriented, eye contact fair to good, casually dressed, motor activity appropriate, speech normal rate and tone, mood agitated, euthymic, congruent affect, thoughts linear and intact, no evidence of delusions or hallucinations.] Client Response/Progress/Benefit: [Client active participant AEB client contributing to discussion, listened attentively to others. Client worked with the group to make connections between barriers faced in the challenge activity and strategies for managing these barriers with utilizing social supports in daily life. Client reflected that a personal barrier in using her current supports is pushing people away due to past negative experiences. Client contributed to discussion about the different types of support and benefits different types of support can provide. Client worked with the group to identify strategies for improving development of new supports and better utilization of current supports. Client identified she would like to improve personal relationships by finding community activities to engage in because she would be able to decrease isolation and loneliness as a result. Client seemed to benefit from identifying a type of support she would like to improve upon and creating actionable steps to promote follow-through. Client to continue IOP level of care to prevent decompensation, increase use of healthy supports and mood management skills.] Narrative Note: []
--- NOTE | 2019-04-28 09:03 | BH.SGPN.GN ---
Behaviors/Verbalizations/Mental Status: [Eye contact is good. Motor activity is restless AEB pt often shifting in chair and squirming in seat. Appearance is casual. Speech is Appropriate rate and tone. Mood is euthymic. Affect is congruent. Thoughts are linear and logical. No evidence of psychosis. Reviewed daily check in sheet and pt denies any active SI, plan, or intent.] Client Response/Progress/Benefit: [Pt responded well to session and actively participated in group discussion. Emotion for today is ?enlightened?. Pt reports this is due to the amount of insight she has gained regarding herself and her mental health. Indicated current mental health wins as challenging herself to start seeing things from a more positive frame of mind when feeling overwhelmed or stressed. Additional win as getting up on a cold and rainy day and coming to group despite not wanting to. Shared reminding herself of how much better she will feel if she does. Current stressor is feeling she is ?not worrying enough? about her stressors. Responded well to further processing and identifying difference between decrease catastrophizing and minimization. Identified ?I don?t think I?m minimizing? and made connection with difficulties in adjusting to feeling more stable. Pt recommended continued IOP to prevent decompensation, increase emotion regulation, and promote continued skill application.] Narrative Note: []
--- NOTE | 2019-04-28 10:20 | BH.SGPN.GN ---
Behaviors/Verbalizations/Mental Status: []Client alert and oriented, casually dressed and groomed. Eye contact fair. Motor activity appropriate. Speech within normal limits. Affect constricted. Mood dysthymic. Thoughts linear, logical, no signs of hallucinations or delusions. Client Response/Progress/Benefit: []Client active participant AEB client providing input throughout discussion. Client reported conflict can be a good learning experience. Client stated gave example that deciding to attend IOP is an internal conflict because on one hand wants to get better, but on the other hand IOP requires time and energy. Group identified and discussed consequences of ignoring conflict. Client identified cognitive distortions as a barrier to conflict resolution. Attentive during psychoeducation on different conflict styles such as avoiding, accommodating, competing, and collaborative. The group began to review benefits and drawbacks to each style and client provided insight to discussion. Benefited as she was able to identify and define conflict as well as increase awareness of how conflict style impacts mental health. Progress noted with increased engagement in group discussion. Will continue IOP tx to prevent decompensation, challenge distorted thoughts and continue use of healthy coping skills. Narrative Note: []
--- NOTE | 2019-04-30 09:03 | BH.SGPN.GN ---
Behaviors/Verbalizations/Mental Status: []Client alert and oriented, neatly dressed and groomed. Eye contact good. Motor activity appropriate. Speech within normal limits. Affect congruent, mood anxious. Thoughts linear, logical, no signs of hallucinations or delusions. Reviewed client?s symptom tracker, no risk for suicidal ideation, plan, or intent as of 04/30/19. Client Response/Progress/Benefit: []Client responded well to session, quiet, but participating and attentive. Client reports feeling ?frustrated? today due to ongoing stress with car issues and money. Client stated her son?s car is ?acting up? and client does not have the money to buy a new one. Client shared she almost ?thought of an excuse? to not come to IOP today because of her frustration. However, client was able to use healthy coping skills and make it to group. Client stated she told herself ?you need this? as group gives client good insight and mental health education. Client?s second mental health win today was that she engaged in physical self-care by going to several medical appointments this week. Client shared ?nothing was wrong, just checkups.? Client appeared to benefit from processing her stressor and reflecting on the benefits of practicing opposite action by not isolating today. Will continue IOP tx to increase healthy emotional regulation skills and further reduce irritability. Narrative Note: []
--- NOTE | 2019-04-30 10:17 | BH.SGPN.GN ---
Behaviors/Verbalizations/Mental Status: []Client alert and oriented, casually dressed and groomed. Eye contact fair. Motor activity appropriate. Speech within normal limits. Affect congruent to topic being discussed, mood anxious and dysthymic. Thoughts linear, logical, no signs of hallucinations or delusions. Client Response/Progress/Benefit: []Client responded well to session, attentive and participating in small group discussion. Group identified the benefits to setting boundaries as well as the consequences of not setting healthy boundaries. Client engaged during discussion of the different types of boundaries and engaged in the self-assessment activity. Client stated it's freeing to have healthy sexual boundaries so everyone is on the same page. Client able to recognize his own mental health suffers when he does not set boundaries. Client seemed to benefit from increased awareness how poor boundaries can negatively impact mental health. Client to continue IOP tx to continue use of healthy coping skills, prevent decompensation, and continue to challenge distorted thoughts. Narrative Note: []
--- NOTE | 2019-04-30 11:22 | BH.SGPN.GN ---
Behaviors/Verbalizations/Mental Status: [Client alert and oriented, casual dress, hygiene appropriate. Eye contact good. Motor activity appropriate. Speech within normal limits. Affect congruent, mood euthymic. Thoughts linear, logical, no signs of hallucinations or delusions. ] Client Response/Progress/Benefit: [Pt responded well to session, active participant. She did well to ask questions and provide both insight and supportive feedback throughout. Pt did well to engage in the boundary self-assessment activity and worked with group to further process the various prompts. Pt discussed that she has been becoming much more aware of how her past boundaries have impacted her emotional stability and core beliefs. Noted that she has struggled with taking on other?s problems out of fear of abandonment. Pt shared increase insight regarding boundaries and mental health. Appeared to benefit from group discussion on strategies for further improving personal boundaries. Identified wanting to improve her ability to set and maintain healthy emotional boundaries, specifically in terms of not taking on other?s responsibilities or allowing their comments to negatively impact her self-esteem. Progress noted in pt ability to identify impact of current boundaries on mental health progress and relationships. Client recommended continued IOP treatment to prevent decompensation, improve emotion regulation, and continue to promote healthy change behaviors. ] Narrative Note: []
--- NOTE | 2019-05-03 09:03 | BH.SGPN.GN ---
Behaviors/Verbalizations/Mental Status: [Eye contact is good. Motor activity is appropriate. Appearance is casual. Speech is Appropriate. Mood is euthymic. Affect is congruent. Thoughts are linear and logical. No evidence of psychosis. Reviewed daily check in sheet and no reports of suicidal ideations or intent.] Client Response/Progress/Benefit: [Pt was receptive of session, active participant in group discussion. She provided input and supportive feedback throughout. Emotion for today is ?assured? and indicated that this was due to having had a positive interaction with an old acquaintance prior to coming in for group this morning. Pt shared the interaction was a mental health win as seeing this individual could have been triggering; however, pt used reframing and positive self-talk to instead have a more positive interaction. Shared ?I can choose to react differently to make the interaction less negative?. Additional win as increased awareness of when she is being impacted by unnecessary stressors and making efforts to ?let them go? by focusing on what is in her control. Current stressor indicated as ?motivating myself to complete small responsibilities?. Recommended continued tx to prevent decompensation, continue to increase emotion regulation, and further improve support system.] Narrative Note: []
--- NOTE | 2019-05-03 10:20 | BH.SGPN.GN ---
Behaviors/Verbalizations/Mental Status: [] Eye contact is good. Motor activity is appropriate. Appearance is casual. Speech is Appropriate. Mood is euthymic. Affect is full. Thoughts are linear and logical. No evidence of psychosis Client Response/Progress/Benefit: [] Pt was an active participant in group discussion and activity. Engaged and provided insight on today's quote. Worked with group to define pitfalls in mental health which group identified were; hidden or unsuspected obstacles, emotional traps, when we defeat ourselves, and unforeseen obstacles which impact progress. Group discussed the impacts of pitfalls which can cause one to; give up, revert back to unhealthy coping, isolate, define oneself as a failure. Group briefly discussed the emotions and pitfalls which occurred during the activity noting that it caused anxiety, anger, fear, and at times they wanted to give up. Pt was able to relate the activity to her own MH and emotions when she has encountered a pitfall which was beneficial in in terms of insight and awareness. Narrative Note: []
--- NOTE | 2019-05-03 11:21 | BH.SGPN.GN ---
Behaviors/Verbalizations/Mental Status: []Client alert and oriented, neatly dressed and groomed. Eye contact good. Motor activity appropriate. Speech within normal limits. Affect constricted, mood irritable. Thoughts linear, logical, no signs of hallucinations or delusions. Client Response/Progress/Benefit: []Client receptive of session, engaged throughout AEB client providing positive input to group discussion. Processed activity with group and connected it to overcoming personal pitfalls in life. Client completed a worksheet where she identified personal pitfalls impacting mental health progress. Identified pitfalls as: over-sharing her feelings, blaming others for her problems, staying in bed, trying ?the same old patterns,? and ?twisting? her thoughts. Client reported belief she is doing better with managing her mental health symptoms, but she wants to continue to work on taking small steps. Client stated she will work on preventing pitfalls by focusing on accomplishing at least one small mental health goal a day. Client reported this will help because it will promote motivation. Benefited from identifying personal pitfalls and strategies to overcome these pitfalls. Progress noted as client reports reduced irritability. Will continue IOP tx as client continues to struggle with challenging negative thoughts and can benefit from medication management. Narrative Note: []
--- NOTE | 2019-05-05 09:05 | BH.SGPN.GN ---
Behaviors/Verbalizations/Mental Status: []Client alert and oriented, neatly dressed and groomed. Eye contact fair. Motor activity appropriate. Speech within normal limits. Affect flat-tearful, mood dysthymic. Thoughts linear, logical, no signs of hallucinations or delusions. Reviewed client?s symptom tracker, no risk for suicidal ideation, plan, or intent as of 05/05/19. Client Response/Progress/Benefit: []Client responded somewhat well to session, withdrawn body language, but participating when prompted. Client reports feeling ?worried? today and she was tearful during her check-in. Client stated she is feeling overwhelmed about stressors in her life including money and car issues. Client shared stressors like these make her realize how much she misses her . Client reported ?he would be able to handle this and he would be positive.? Client somewhat receptive to feedback from peers and patient accounting representative about emotional validation and problem-solving solutions. Client able to recognize mental health wins which included getting a good call from her employer and ?keeping my mouth shut more.? Appeared to benefit from identifying positives and reframing negative thoughts. Will continue IOP tx to promote the use of healthy coping skills and to reduce emotional dysregulation. Narrative Note: []
--- NOTE | 2019-05-05 10:20 | BH.SGPN.GN ---
Behaviors/Verbalizations/Mental Status: []Client alert and oriented, neatly dressed and groomed. Eye contact good. Motor activity appropriate. Speech within normal limits. Affect congruent, mood euthymic. Thoughts linear, logical, no signs of hallucinations or delusions. Client Response/Progress/Benefit: []Client was an active participant and positively contributed to discussion. Client appeared to connect with the quote as shown by her report that ?life is full of goals and if you are only focused on the end goal you won?t be happy.?? Client worked together with group to define goals and identify the benefits of developing goals which included; reduced depression, reduced anxiety, increased self-esteem, creates good feelings, improves relationships, and keeps people moving forward. Group also identified negative consequences of not setting goals to be; staying stuck, worse relationships, more problems, and maintaining unhealthy cycles. Contributing during education on developing SMART goals. Benefited from increasing awareness of goal-setting methods and practicing goal setting. Progress noted as client was able to utilize opposite action to manage her symptoms and improve her mood from first group today. Will continue IOP tx to promote emotional regulation and increase use of healthy coping skills. Narrative Note: []
--- NOTE | 2019-05-05 11:24 | BH.SGPN.GN ---
Behaviors/Verbalizations/Mental Status: [Client alert and oriented, casually dressed and appropriately groomed. Eye contact good, tearful when discussing obstacles. Motor activity appropriate. Speech within normal limits. Affect congruent, mood anxious and euthymic. Thoughts linear, logical, no signs of hallucinations or delusions. ] Client Response/Progress/Benefit: [Pt attentive throughout and actively participated in both experiential activity and discussion regarding SMART goal setting. Taking notes throughout and able to make connections between activity and goal setting in her daily life. Pt engaged in using SMART goal criteria to create own mental health goal. Identified goal as: ?Take the step to obtain the tangible funds I need for rent?. Pt reported this goal will benefit her by decreasing anxiety, improving mood, increasing productivity, and feeling safer. Pt identified potential barriers to accomplishing goal to include: shame/fear, judgement, rumors, and embarrassment. Pt able to identify solutions for barriers which included: ?remind myself this is for me?, ?remember everyone needs help?, ?bring something comforting with me?. Pt seemed to benefit from identifying a SMART goal and coming up with strategies to overcome potential barriers. Progress noted in pt ability to create a small relevant goal aimed at improving mental health symptoms and self-esteem. Pt to continue IOP to increase healthy coping skills, increase emotion regulation, as well as prevent decompensation.] Narrative Note: []
--- NOTE | 2019-05-05 13:12 | PCM.BH.PN ---
Progress Note Progress Note: Patient is a 53-year-old female with a history of depression and anxiety who is seen in follow-up for treatment at the [facility] outpatient program. I last saw the patient 3 weeks ago on April 12, 2019. At that time we made some changes in her medication. The patient states that she has been taking her new prescription of Cymbalta 30 mg p.o. daily for about 3 weeks now. She has not stopped her Zoloft yet. She also was changed from Ativan to Klonopin and she feels that the Klonopin is helping her anxiety. The fact that is longer acting and it does not cause rebound anxiety when it wears off and the fact that is easier to wean later when she feels better is what motivated as to change from Ativan to Klonopin. Her mood is better but she remains still depressed. But she states that she is less depressed and anxious than she was 3 weeks ago. She feels that she is learning some skills that can help her in the IOP program. She remains hurt and angry that she lost her job due to being labeled as benzo dependent. She says she is doing much less crying. And she denies suicidal thoughts or homicidal ideation. Her functioning has improved slightly also. Current Psychiatric Medications: Zoloft 50 mg p.o. daily; Cymbalta 30 mg p.o. daily (x3 weeks); Neurontin 300 mg p.o. 3 times daily; Klonopin 0.5 mg p.o. twice daily (on this for 11 years). [] Mental Status Examination: [Patient is casually dressed and groomed and appears normal for stated age with good hygiene. She has good eye contact and is cooperative during the interview. Speech is normal rate and rhythm and fluent with no pressure. Mood is depressed. Affect is anders than last time and the patient only cried once during the interview when discussing losing the job. Thought processes goal-directed and organized. Thought content: She is not having thoughts that she would not care if she now. No evidence of suicidal or homicidal ideation. No evidence of hallucinations or delusions. Judgment intact. Insight improving. Impulsivity low.] Diagnoses: [] [place] I: [] Major depressive disorder recurrent severe without psychosis; generalized anxiety disorder [place] II: [Negative] [place] III: [Matured arthritis, neuropathy, fibromyalgia, lymphocytic colitis] [place] IV:[] Primary support, financial and job issues] Plan: [Patient will continue the IOP program at [facility] as the education, support, structure, individual and group therapy will benefit the patient and hopefully prevent worsening of her condition. She felt safe at this appointment if she does not feel safe at any time she will tell us or go to the emergency room. The patient agrees to increase the Cymbalta to 60 mg p.o. daily in order to improve mood, anxiety, and possibly neuropathic pain. In addition she will stop the Zoloft as it was no longer working and was aggravating her diarrhea. She will continue on the Klonopin 0.5 mg p.o. twice daily. The patient understands that later may be in a few months when she is recovered fully she will slowly wean the Klonopin. The risks, options, side effects, and possible complications of the medications were discussed with the patient and she understands and accepts these. I will see the patient in follow-up in 3 weeks.]
--- NOTE | 2019-05-07 09:05 | BH.SGPN.GN ---
Behaviors/Verbalizations/Mental Status: [Client alert and oriented, casual dress, hygiene tended to. Eye contact fair to good. Motor activity appropriate. Speech within normal limits. Affect congruent, mood anxious, agitated. Thoughts linear, logical, no signs of hallucinations or delusions. Reviewed client?s symptom tracker, no signs of suicidal ideation, plan, or intent as of today. ] Client Response/Progress/Benefit: [Pt was receptive of session, actively listening throughout and providing input to the group. Emotion for today is ?anxious?. She indicated that this was due to increased difficulties in not responding negatively to a stressful situation that recently occurred. Indicated however that she was able to catch herself and identify an alternative solution for how she can deal with it. Reported that this is a win for her as she was able to ?take a step back before responding? which aided in reducing overall agitation. Additional win noted as continuing to work on application of dialectical thinking in her daily life and provided an example of doing so when desiring to stay in bed. Reports ?I?ve been doing small things for myself?. Pt appeared to benefit from the supportive feedback and encouragement provided by the group. Pt progress noted in reported application of skills learned outside tx environment as well as self-report of improved emotion regulation. Recommended continued tx to prevent decompensation, continue to increase emotion regulation and reduce depression, as well as promote healthy change behaviors.] Narrative Note: []
--- NOTE | 2019-05-07 10:30 | BH.SGPN.GN ---
Behaviors/Verbalizations/Mental Status: []Client alert and oriented, casual dress, hygiene tended to. Eye contact fair. Motor activity appropriate. Speech within normal limits. Affect constricted, mood depressed. Thoughts linear, logical, no signs of hallucinations or delusions. Client Response/Progress/Benefit: []Pt receptive to session, provided input and remained an active listener throughout discussion on stress. Able to brainstorm with the group positive and negative aspects of stress on physical and mental health. She participated in identifying current stressors impacting mental health. Pt's current stressors include: isolation, transportation problems, financial problems, other people, health issues, anxiety, no motivation, upcoming new job, past trauma, and anger. Appeared to benefit from gaining awareness of own current stressors and learning about the impact stress has on overall wellbeing. Progress noted in improved ability to identify importance of dealing with stressors versus ignoring stressors, which results in increased problems. Recommended continued IOP tx to improve use of healthy coping skills, improve emotional regulation, and prevent decompensation. Narrative Note: []
--- NOTE | 2019-05-07 11:27 | BH.SGPN.GN ---
Behaviors/Verbalizations/Mental Status: []Client alert and oriented, neatly dressed and groomed. Eye contact good. Motor activity appropriate. Speech within normal limits, however making short comments to peers. Affect constricted, mood irritable. Thoughts linear, logical, no signs of hallucinations or delusions. Client Response/Progress/Benefit: []Client engaged in session as evidenced by client participating in activity. However, during the activity when client disagreed with peers, she became short and passive-aggressive with them. Client worked with the group to complete the challenge activity and struggled at times to see different perspectives and strategies. Client was able to identify barriers encountered that may also impact managing stress in daily life. Group identified barriers which included looking for loopholes and lack of patience. Client actively listening during discussion about the 4 A's of managing stress. Expressed wanting to increase awareness of which strategies would be best for improving each of her identified stressors. Client seemed to benefit from increased awareness of the impact of stress on mental health and increasing repertoire of stress management strategies. Progress appears to be dependent on the day/week as client has shown strides toward progress, but her mood is often associated with external situations. Will continue IOP tx to prevent decompensation and improve emotional regulation. Narrative Note: []
--- NOTE | 2019-05-10 10:16 | BH.SGPN.GN ---
Behaviors/Verbalizations/Mental Status: []Client alert and oriented, casually dressed and groomed. Eye contact good. Motor activity appropriate. Speech within normal limits. Affect constricted, mood irritable. Thoughts linear, logical, no signs of hallucinations or delusions. Client Response/Progress/Benefit: []Pt passive participant AEB pt providing limited input during discussion, however at times did appear to listen attentively to others. At times pt did appear to roll her eyes to others comments. Pt gained awareness of personal physical symptoms which included: nausea, fatigue, body weakness, jaw clenching, and teeth grinding. Pt identified sleeping and isolating as safety behavior she has engaged in that provide short term relief but increase anxiety over time. Pt appeared to benefit from gaining insight to safety behaviors and how anxiety manifests itself, as well as harmful impact of safety behaviors on mental health. Pt continuing to struggle with distorted and negative thought patterns which hinders pt's willingness to accept help or try new skills or strategies. Will continue IOP to improve emotional reguation, challenge distorted thoughts and prevent decompensation. Narrative Note: []
--- NOTE | 2019-05-10 11:22 | BH.SGPN.GN ---
Behaviors/Verbalizations/Mental Status: [Client alert and oriented, casual in appearance. Eye contact fair, avoidant. Motor activity appropriate. Speech within normal limits. Affect constricted, mood agitated, depressed. Thoughts linear, logical, no signs of hallucinations or delusions.] Client Response/Progress/Benefit: [Pt attentive though struggling to challenge negative thoughts and remain actively engaged during discussion. This was evidenced by negative or sarcastic comments made throughout discussion, as well as expressing reluctance to be open to trying the anxiety management skills. Pt irritability and difficulties in challenging distorted though patterns appeared to impact ability to use emotion regulation skills to return to baseline and may have limited ability to internalize tx materials. Pt able to listen during the discussion reviewing three categories of skills for managing anxiety which included mind-based, body-based, and self-soothing. She began to complete worksheet identifying what relaxation skills she currently uses and identified what skills she would try to help manage symptoms of anxiety; however, again became distracted by own thoughts and had difficulties in completing the worksheet provided. Pt seemed to benefit from structure and support of the treatment environment. Progress continues to be limited by continued difficulties in her ability to apply emotion regulation and healthy coping skills during times of dysregulation. Recommended to continue IOP level of care to continue to promote use of healthy coping skills, increase emotion regulation skills, as well as prevent decompensation.] Narrative Note: []
--- NOTE | 2019-05-13 09:05 | BH.SGPN.GN ---
Behaviors/Verbalizations/Mental Status: [] Eye contact is poor. Motor activity is appropriate. Appearance is casual. Speech is Appropriate. Mood is depressed. Affect is flat. Thoughts are linear and logical. No evidence of psychosis. Reviewed daily check in sheet and no reports of suicidal ideations or intent. Client Response/Progress/Benefit: [] Pt participated when prompted however states I'm going to make this quick. Emotion for today is fatigued ... concerned. Daily symptoms show 3/5 for anxiety and hopelessness. Notes 2/5 for agitation. Shared that her pet was ill yesterday which was stressful however appears to be getting better. Spent some time with her grand daughter which was beneficial. Smiling while discussing what they did. Reports feeling gloomy today which she credits to the rainy and cold weather. Also reports anxiety and concern about starting her new job on 05/24/19. Fearful that it will be overwhelming as she has not worked full-time in a while. Group provided support, encouragement, and feedback which was beneficial. Regression noted per pt report. Will continue in IOP to stabilize mood, prevent decompensation, and increase healthy coping. Narrative Note: []
--- NOTE | 2019-05-13 10:10 | BH.SGPN.GN ---
Behaviors/Verbalizations/Mental Status: []Client alert and oriented, casually dressed and groomed. Eye contact poor. Motor activity restless. Speech within normal limits. Affect flat, mood depressed and irritable. Thoughts linear, logical, no signs of hallucinations or delusions. Client Response/Progress/Benefit: []Client passive participant AEB pt providing limited input during discussion. Client appeared to connect with the topic of fear of failure. Client struggled with connecting how ones perspective about failure can impact mental health. Group identified the impacts of fear of failure on mental health which included: not trying, depending too much on others, avoidance, self-sabotage, and increased mental health symptoms. Client quiet, but did work with peers to complete activity. Client seemed to benefit from increased awareness of how fear of failure can impact mental health. Client to continue IOP level of care to challenge distorted thoughts, improve emotional regulation, and prevent decompensation. Narrative Note: []
--- NOTE | 2019-05-13 11:14 | BH.SGPN.GN ---
Behaviors/Verbalizations/Mental Status: [Client alert and oriented, casually dressed and well groomed. Eye contact fair to good. Motor activity appropriate. Speech within normal limits. Affect congruent, mood agitated, anxious. Thoughts linear, logical, no signs of hallucinations or delusions.] Client Response/Progress/Benefit: [Client responded well to session, active participant. Client further processed the group activity and shared that trusting others was difficult but helped the group accomplish the activity. Client completed the fear of failure worksheet and reported that fear of failure is keeping her from further improving social supports. Client reported her barriers for overcoming her fear of failure are second guessing, negative past experiences, difficulty communicating, and worrying that she will be judged by others. Client shared she has been able to bounce back from setbacks in the past and the positive thing she has learned from past failures is that she is stronger than s he thinks. Client selected a goal to help her overcome her fear of failure. Client?s goal is to practice reaching out to outside supports by trying new activities. Client appeared to benefit from gaining awareness and setting a goal to reduce fear of failure. Client showing progress in utilizing healthy coping to skills to manage emotions, but she can continue to combat negative thoughts and is recommended continued IOP tx to improve ability to do so.] Narrative Note: []
== END 2019-05-13 23:59 ==
LOC: BHIOP 09:00
PROVIDERS: Referring Provider Psychiatry & Neurology Psychiatry; Visit Provider Psychiatry & Neurology Psychiatry
DX: F33.2 Major depressive disorder, recurrent severe without psychotic features (principal); F41.1 Generalized anxiety disorder
CPT/HCPCS: 99214; H0035; H2012; H2020; T1002; 90834; 90837; 90853

== ENCOUNTER → 2019-04-28 14:50 | Outpatient (CLI) | payer MEDICAID, SELFPAY ==
[2019-03-31 21:23] VITALS: BMI 23.3
--- NOTE | 2019-04-28 14:53 | BI_ITS ---
MAMMOGRAPHY - BILATERAL SCREENING REASON FOR EXAM: Female, 53 years old. Routine annual screening examination. PERTINENT HISTORY: Non-contributory. TECHNIQUE: Digital bilateral breast mikie (3D mammographic acquisition) in the CC and MLO projections. 2-D mediolateral oblique (MLO) and craniocaudad (CC) views of both breasts were obtained. CAD: Full Field Digital Mammography with Computer Added Detection was performed. COMPARISON: Comparison is made with prior examination of April 04, 2011 and April 04, 2010. FINDINGS: Breast Composition: The breasts are extremely dense, which lowers the sensitivity of mammography. There are no dominant masses or suspicious calcifications. No other significant abnormalities are identified. There has been no significant change since the prior study. BI/SCREEN MAMM (CAD) W/MIKIE BILAT IMPRESSION: Stable bilateral screening mammogram. Yearly follow-up mammogram recommended. (A) ASSESSMENT CATEGORY: BIRADS Category 1: Negative. A letter regarding these results will be sent to the patient by the facility within 30 days. Approximately 10% of breast cancers are not detected by mammography. A normal mammogram should not delay biopsy of a clinically suspicious abnormality. [id number] Electronically Signed: Sergio Vealsco, at 8:56 EDT , Service support ,
== END ==
PROVIDERS: Family Provider Nurse Practitioner Family; PCP Nurse Practitioner Family
DX: Z12.31 Encounter for screening mammogram for malignant neoplasm of breast (principal)
CPT/HCPCS: 77063; 77067

== ENCOUNTER 2019-05-14 09:00 | Outpatient (RCR) | payer MEDICAID, SELFPAY ==
--- NOTE | 2019-05-14 09:05 | BH.SGPN.GN ---
Behaviors/Verbalizations/Mental Status: []Client alert and oriented, casually dressed and groomed. Eye contact poor. Motor activity appropriate. Speech within normal limits. Affect flat, mood irritable and dysthymic. Thoughts linear, logical, no signs of hallucinations or delusions. Reviewed client?s symptom tracker, no risk for suicidal ideation, plan, or intent as of today. Client Response/Progress/Benefit: []Pt was a passive participant in group discussion, not providing input but appeared to listen attentively to peers comments. Pt chose not to share her thoughts or feelings for today's check-in. Progress is hard to indicate due to pt choosing to not open up about current symptoms and stressors. Continued IOP tx recommended to continue application of healthy coping skills, identify and reframe distorted thought patterns, and prevent decompensation. Narrative Note: []
--- NOTE | 2019-05-14 11:24 | BH.COMM ---
Communication Note - Communication with Client Communication Note: Pt asked to speak with this therapist as she had some concerns regarding the program. Was honest and discussed her concerns. She has a perception that certain staff don't like her and treat her differently. Therapist did his best to address concerns and we developed a plan for the next several weeks. Tearful however did not report any suicidal ideations nor did she report suicidal thoughts on daily tracker this AM. Notes anxiety about upcoming job and discharge.
--- NOTE | 2019-05-17 10:38 | BH.MDN_ITS ---
Multi-Disciplinary Note - Note 60-min Individual Time Started:: 09:00 Date: 05/17/19 Purpose of session/treatment goals addressed:: Reviewed current symptoms and progress in IOP. Addressed treatment plan goals 1 and 2. Eye Contact:: Fair Motor Activity:: Restless Appearance:: Casual Speech:: Appropriate Mood:: Anxious, Irritable, Depressed Affect:: Congruent Thoughts:: Linear, Logical, No evidence of hallucinations/delusions noted Staff Interventions:: Allowed pt to vent. Challenged cognitive distortions (mind-reading). Engaged in conversation about continuing in IOP program. Client Response:: Pt was tearful for a majority of the session. She discussed several recent stressors which are impacting her mental health. Overwhelmed and exhausted stating that she has nobody to talk with or to be with her during these difficult times ... I don't even have anyone to go with my to [employer] to help with electric bills. Feels alone. Notes constant worry and fear related to losing her house or heat. Unable to find purpose in daily life. Views herself as less of a person than others. Stems in large part to having no close relationships, finances, and needing assistance (medicaid). In her experience people with medicaid are treated differently. Admits this has impacted her self- esteem and her ego further impacting her MH. Engaged in disucssion on why she views herself as less than others which led to conversation on how she defines herself and her communication with others. She appreciates direct communication and often times this can negatively impact relationships. Risks/Concerns:: None noted. Denies SI, plan, or intent. Future-oriented Progress Toward Goals/Plan:: Progress noted. Overwhelmed with life stressors. Exhausted from constant struggle to make ends meet financially. While she starts full-time job next week she stills has constant worry about heating, electricity, fixing her car, and other stressors. Lonliness. No support. Responded well to challenging and reminders that she has overcame a lot in the past 4 months. Able to see light at the end of the tunnel. We discussed her concerns that she was not a priority to IOP staff and feels that she doesn't trust staff as much. Wants to continue with IOP and is agreeable with meeting with staff to address these concerns in an effort to reengage her in treatment. Time Stopped:: 10:05
--- NOTE | 2019-05-20 15:25 | BH.COMM_ITS ---
Communication Note - Communication with Client Communication Note: Spoke with patient over the phone. She had intial psyc hiatrist appointment today with what will be her ongoing outpatient psychiatrist at [facility]. Reports that it went well. She was also linked with counseling at this agency. Starts back to work full-time next week and has another appt with outpatient psychiatrist on 05/28/19. She had thoughts about discharging from IOP. Encouraged her to continue with IOP while she transitions back to work as this could be additional stressor. She agreed. Planned to meet tomorrow at 3pm to discuss further and to meet with IOP staff to address additional concerns.
--- NOTE | 2019-05-20 15:29 | BH.COMM ---
Communication Note - Communication with Client Communication Note: Pt did not show for meeting with IOP staff to address concerns. Called and left message. She is linked with aftercare and met with her psychiatrist yesterday. Appears that she does not wish to return to [facility] which was recommended.
--- NOTE | 2019-05-21 11:40 | BH.DS ---
Discharge Summary - Demographics Date of Admission:: 04/12/19 Discharge Date: 05/21/19 Presenting Problems at Admission:: Pt is a 53 year old female who was referred to [facility] by [facility] after crisis assessment due to worsening anxiety, depression, and not functioning at baseline. Previous psychiatric admission to [facility] in 2015. Worsening symptoms since she lost her job in 01/2019. Recently had some medication changes which exacerbated her symptoms. Endorses feeling on edge, uncontrollable crying, no motivation, no energy, and increased irritability. Daily panic attacks. Difficulty completing ADLs. Hx of mistrust of health care providers which led to firing her PCP and not being linked with treatment since 2014. Discharge Diagnoses:: Major depressive disorder recurrent severe without psychosis. Generalized anxiety disorder Reason for Discharge:: Pt did not want to continue with [facility]. - Treatment Progress During Treatment & Response: Progress was erratic. During the first 2 weeks of IOP pt was engaged and reported increase hope and positivity. Also reported increased boundary setting with toxic people, improved conflict resolution/ problem solving skills, and acceptance of current situation. Was able to interview for a job and was hired. Became less engaged in [facility] in the past 3 weeks due to her perception that staff did not like her. Staff attempted to address this issue and resolve her concerns through individual counseling. SHe was agreeable to meeting with [facility] staff however she no showed this meeting and has not returned phone calls. Issues Still to be Addressed:: Anxiety, panic, stress associated with transitioning back to full-time work, depression, anger mgmt, and identifying healthy coping skills. Discharge Recommendations/Instructions:: Recommended to continue with [facility]. Pt was agreeable over phone to continue however no-showed scheduled meeting and has not returned phone calls. She was linked with aftercare while in the program. She met with outpatient psychiatrist Dr. Gutierrez on 05/15/19 and has another appt on 05/28/19. Also linked with counselor at [facility] on 06/16/19. Discharge Handout: Complete Discharge Handout with client on aftercare options and continuity of care.
== END 2019-05-21 12:09 | disposition home or self-care (01) ==
LOC: BHIOP 09:00
PROVIDERS: Family Provider Nurse Practitioner Family; PCP Nurse Practitioner Family; Referring Provider Psychiatry & Neurology Psychiatry; Visit Provider Psychiatry & Neurology Psychiatry
DX: F33.2 Major depressive disorder, recurrent severe without psychotic features (principal); F41.1 Generalized anxiety disorder
CPT/HCPCS: H0035; H2020; 90837

== ENCOUNTER → 2020-01-11 11:08 | Outpatient (CLI) | payer BC, MEDICAID, SELFPAY ==
[2020-01-11 11:05] VITALS: BMI 27.1
== END ==
PROVIDERS: PCP Nurse Practitioner Family; Referring Provider Chiropractor; Visit Provider Chiropractor
DX: M99.03 Segmental and somatic dysfunction of lumbar region (principal)
CPT/HCPCS: 72100

== ENCOUNTER → 2020-03-24 06:48 | Outpatient (CLI) | payer BC, MEDICAID, SELFPAY ==
[2020-01-11 11:05] VITALS: BMI 27.1
[2020-03-21 16:48] VITALS: BMI 27.1
--- NOTE | 2020-03-24 07:01 | MRI_ITS ---
STUDY: MRI LUMBAR SPINE WITHOUT CONTRAST REASON FOR EXAM: Female, 54 years old. Worsening low back pain L and gt;R, no specific injury TECHNIQUE: Standardized fat and water weighted pulse sequences were obtained in the sagittal and axial planes. COMPARISON: MRI lumbar spine without contrast 05/18/2014. FINDINGS: T10-T11: (Sagittal only). Normal endplates. Normal disc height, hydration and morphology. No ventral extradural defect. Normal central canal and bilateral intervertebral neural foramina. T11-T12: (Sagittal only).Normal endplates. Normal disc height, hydration and morphology. No ventral extradural defect. Normal central canal and bilateral intervertebral neural foramina. T12-L1: (Sagittal only). Normal endplates. Normal disc height, hydration and morphology. No ventral extradural defect. Normal central canal and bilateral intervertebral neural foramina. Normal lumbar lordosis. There is no substantial scoliosis. Normal conus medullaris that terminates at the upper L1 vertebral body level. L1-2: Normal endplates. Normal disc height, hydration and morphology. Normal bilateral facet joints. Normal central canal and bilateral lateral recesses. Normal bilateral intervertebral neural foramina. L2-3: Normal endplates. Minimal loss of disc hydration. Normal disc morphology. Normal central canal and bilateral lateral recesses. Mild bilateral degenerative facet hypertrophy is unchanged but there is minimal fluid inside the facet joints that was not present previously. Normal bilateral intervertebral neural foramina. L3-4: Moderate disc space height narrowing with moderate loss of disc hydration. Moderate flattening central canal stenosis with an AP canal diameter of 7 mm secondary to development of prominent dorsal epidural lipomatosis, posterior ligamenta flava hypertrophy and mild increase in bilateral degenerative facet hypertrophy. Normal bilateral intervertebral neural foramina. L4-5: Normal endplates. Mild disc space height narrowing has increased slightly with mild increase loss of disc hydration. Moderate central canal stenosis with an AP canal diameter of 6.5 mm, previously 10 mm. Additionally, new 10 mm degenerative cyst behind the L4-L5 facet joint. There is also a 3.5 mm cyst in the medial aspect of the left facet joint. Normal bilateral intervertebral neural foramina. L5-S1: Normal endplates. Normal disc height, hydration and morphology. Normal bilateral facet joints. Normal central canal and bilateral lateral recesses. Normal bilateral intervertebral neural foramina. Normal visualized sacral ala. Normal visualized paraspinous soft tissue structures. MRI/Spine Lumbar (Routine) IMPRESSION: 1. No MRI evidence of lumbar extruded disc fragment. 2. Moderate central canal stenosis at L4-L5 disc level with an AP canal diameter of 6.5 mm is new. This is secondary to development of prominent dorsal epidural lipomatosis and posterior ligamenta flava hypertrophy. Additionally, there is a 10 mm exophytic degenerative cyst behind the L4-L5 facet joint and a 3.5 mm cyst in the medial aspect of the left facet joint. 3. New moderate disc space height narrowing at L3-L4 disc level with moderate flattening central canal stenosis secondary to development of prominent dorsal epidural lipomatosis, posterior ligamentum flavum hypertrophy and mild increase in bilateral degenerative facet hypertrophy. Electronically Signed: José Miguel Pryor MD at 8:54 EDT , Service support ,
== END ==
PROVIDERS: PCP Internal Medicine Geriatric Medicine; Referring Provider Anesthesiology Pain Medicine; Visit Provider Anesthesiology Pain Medicine
DX: M54.9 Dorsalgia, unspecified (principal); M79.605 Pain in left leg
CPT/HCPCS: 72148

== ENCOUNTER 2020-05-17 13:30 | Outpatient (RCR) | payer BC, MEDICAID, SELFPAY ==
[2020-01-11 11:05] VITALS: BMI 27.1
[2020-03-21 16:48] VITALS: BMI 27.1
--- NOTE | 2020-03-22 15:18 | HP.PTEVAL_ITS ---
Patient's Visit Information JNAETTE DELGADO is a 54 year old F referred to Physical Therapy by Dr. Amada Plasencia MD with a diagnosis of BACK PAIN. Date of Evaluation: 03/22/20 Physical Therapist: René Addison, PT, Cert MDT, OCS - Visit Plan Frequency: 2x /Week Duration: 4 Weeks Plan: PSYCHOSOCIAL INFEUNECES HIGH DEPRESSION AND ANXIETY. PT INTERVENTIONS POSTURE/BODY MECHANICS,DONALDO EX'S,DLS ,MODALITIES,LE STRENGTHENING - Subjective This 54 y/o female presents to physical therapy with lumbar pain. Patient has had lumbar pain for about 2 years .Patient has had chiropractor treatment which didnt help. Patient seen pain management ,plan to epidural and MRI. Patient pain located right LS . Patient pain worse with sitting,lifting,bending. Alleviating factors walking and moving.Dr Horta recommends tramadol. Patient has parathesia/tingling in legs . Coughiing/sneezing- Patient has no h/o trauma. Patient has symptoms affects QOL and function. 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 SOCAIL: - Pain Left Back Pain Intensity (Out of 10): 4 Pain Intensity Range: 10 - Objective POSTURE: mild foward posture. GAIT: reciprocal pattern. NEURO: c/o parathesia/tingling in legs ,reflexes L3-4,L4-5,L5-S1 3/3. SYMMTRIES : ALIGN. PALPTION; Tender RIght L-S. FLEXABLITY: hams min tight. MMT: quads/hams 4- /5,hip flexion 4-/5,ankle 4/5. LUMBAR ROM: flexion md loss,extension mmod loss,side glides min loss. OBSERVATION: burn from ice at home - Special Tests L/S Slump test left side: Negative L/S Slump test right side: Negative L/S Left Straight Leg Raise: Negative L/S Right Straight Leg Raise: Negative Lumbar Standing: Flexion - Mechanical Response: No effect Lumbar Standing: Flexion - Symptoms During Testing: Increases Lumbar Standing: Flexion - Symptoms After Testing: Worse Lumbar Standing: Extension - Mechanical Response: No effect Lumbar Standing: Extension - Symptoms During Testing: Decreases Lumbar Standing: Extension - Symptoms After Testing: Better Lumbar Standing: Right Side Glides - Mechanical Response: No effect Lumbar Standing: Right Side [place] - Symptoms During Testing: No effect Lumbar Standing: Right Side [place] - Symptoms After Testing: No effect Lumbar Standing: Left Side [place] - Mechanical Response: No effect Lumbar Standing: Left Side [place] - Symptoms During Testing: No effect Lumbar Standing: Left Side [place] - Symptoms After Testing: No effect - Goals Goal 1:: Patient to be I with HEP. Goal Time Frame: 4-6 Weeks Goal 2:: Patient to I with posture/body mechanics . Goal Time Frame: 4-6 Weeks Goal 3:: Patient to decrease lumbar pain 50% or > to improve function and ADLS'/job demands . Goal Time Frame: 4-6 Weeks Goal 4:: Patient to improve lumbar ROM for function of recovery Goal Time Frame: 4-6 Weeks Goal 5:: Patient to impove back owestry score by 5 points or> to improve QOL. Goal Time Frame: 4-6 Weeks Goal 6:: Patient increase strength BLE TO 4/5 to improve gait. Goal Time Frame: 4-6 Weeks - Rehabilitation Potential Physical Therapy Diagnosis: This patient has lumbar pain with possibel disc involment with derranagement worse with flexion type movement better extension and walking alaso has psychosocial influences with depression and anxiety with patient becoming emotional with worried about nable to race for self which can interfere with outcome. Rehabilitation Potential: Good - Anticipated Interventions Patient/Client Instruction: Educate patient on: Condition For the Purpose of:: To decrease pain, To increase ROM, To improve muscle performance and motor function, To improve ability to perform ADL's, To increase tolerance to activity/condition/position, To improve performance and independence with ADL's, To decrease level of supervision to perform tasks, To improve health of tissue, To decrease soft tissue restriction, To increase flexibility/ROM, To assume or resume ADL's, To prevent re-injury Therapeutic Exercise to Include: Strength training, Body mechanics, Postural training, Flexibilty training, Dynamic Lumbar Stabilization, Donaldo Exercises For the Purpose of:: To decrease pain, To increase ROM, To improve muscle performance and motor function, To improve ability to perform ADL's, To increase tolerance to activity/condition/position, To improve ability of physical actions for home/community/work/leisure, To improve health of tissue, To decrease soft tissue restriction, To reduce risk of recurrence, To improve ability to perform tasks related to life management TENS: Yes IF ES: Yes Cryotherapy (ice pack, ice massage): Yes Thermo therapy (hot pack): Yes Ultrasound (thermal/non thermal): Yes For the Purpose of:: To decrease pain, To increase ROM, To improve muscle performance and motor function, To improve ability to perform ADL's, To increase tolerance to activity/condition/position, To improve ability of physical actions for home/community/work/leisure, To improve health of tissue, To decrease soft tissue restriction, To improve ability to perform tasks related to life management Thank you for the opportunity to evaluate your patient. For Medicare and Medicare HMO plans, please review the plan of care and approve it. It will need to be FAXED BACK to us at [phone] for Medicare purposes. For Medicare only, by signing this I certify the plan of care. Please let me know if there are questions or concerns regarding this plan of care. Physician Signature: Date:
--- NOTE | 2020-08-02 09:28 | HP.PTDCNRP_ITS ---
JANETTE DELGADO was seen in my office for initial evaluation on 03/22/20. The following Plan of Care was established for this patient: Initial Frequency: 2x /Week Initial Duration: 4 Weeks Patient/Client Instruction: Educate patient on: Condition For the Purpose of:: To decrease pain, To increase ROM, To improve muscle performance and motor function, To improve ability to perform ADL's, To increase tolerance to activity/condition/position, To improve performance and independence with ADL's, To decrease level of supervision to perform tasks, To improve health of tissue, To decrease soft tissue restriction, To increase flexibility/ROM, To assume or resume ADL's, To prevent re-injury Therapeutic Exercise to Include: Strength training, Body mechanics, Postural training, Flexibilty training, Dynamic Lumbar Stabilization, Mee Exercises For the Purpose of:: To decrease pain, To increase ROM, To improve muscle performance and motor function, To improve ability to perform ADL's, To increase tolerance to activity/condition/position, To improve ability of physical actions for home/community/work/leisure, To improve health of tissue, To decrease soft tissue restriction, To reduce risk of recurrence, To improve ability to perform tasks related to life management TENS: Yes IF ES: Yes Cryotherapy (ice pack, ice massage): Yes Thermo therapy (hot pack): Yes Ultrasound (thermal/non thermal): Yes For the Purpose of:: To decrease pain, To increase ROM, To improve muscle perf ormance and motor function, To improve ability to perform ADL's, To increase tolerance to activity/condition/position, To improve ability of physical actions for home/community/work/leisure, To improve health of tissue, To decrease soft tissue restriction, To improve ability to perform tasks related to life management This patient was last seen in our office . Pertinent comments regarding their P hysical therapy will appear below: This patient seen for PT for back pain for postural ex's,DLS thus is doing well . At this point I will be discontinuing this patient from physical therapy. I would be happy to see this patient again in the future if found appropriate by the physician. Thank you! René Addison, PT, Cert MDT, OCS
== END 2020-05-17 19:00 | disposition home or self-care (01) ==
LOC: PT 13:30
PROVIDERS: PCP Internal Medicine Geriatric Medicine; Referring Provider Anesthesiology Pain Medicine; Visit Provider Anesthesiology Pain Medicine
DX: M54.9 Dorsalgia, unspecified (principal)
CPT/HCPCS: 97110; 97162

== ENCOUNTER 2020-07-04 10:56 | Day surgery (SDC) | payer BC, MEDICAID, SELFPAY ==
[2020-06-19 13:33] VITALS: BMI 28.7
--- NOTE | 2020-07-04 07:48 | HP_ITS ---
Intake Vital Signs 06/19/20 Height 5 ft 3 in 06/19/20 Weight: 162 lb Intake Visit Reasons: PHONE VISIT, CSCOPE/ CONSTIPATION Chief Complaint: c-scope consult Valve Setter Required: No Is patient in pain?: No Allergies No Known Allergies Allergy (Verified 06/19/20 13:33) Medications Clonazepam [Klonopin] 0.5 mg PO BID 04/13/19 [History Confirmed 06/19/20] methotrexate sodium 7.5 mg tablet 7.5 mg PO QWEEK 01/11/20 [History Confirmed 06/19/20] tramadol 50 mg tablet tab PO 03/21/20 [History Confirmed 06/19/20] buspirone 5 mg tablet 5 mg PO BID 06/19/20 [History Confirmed 06/19/20] ergocalciferol (vitamin D2) 50,000 unit tablet unit PO QWEEK tab 06/19/20 [History] folic acid 1 mg tablet 2 mg PO DAILY tab 06/19/20 [History Confirmed 06/19/20] gabapentin 300 mg capsule 300 mg PO BID cap 06/19/20 [History Confirmed 06/19/20] omeprazole 40 mg capsule,delayed release 40 mg PO DAILY 06/19/20 [History Confirmed 06/19/20] sertraline 50 mg tablet 150 mg PO DAILY tab 06/19/20 [History Confirmed 06/19/20] [facility] Medical History ADHD (Acute) Anxiety (Acute) Arthritis (Acute) Bilateral headaches (Acute) Depression (Acute) Fatigue (Acute) Fibromyalgia (Acute) GERD (gastroesophageal reflux disease) (Acute) High cholesterol (Acute) History of Clostridioides difficile colitis (Acute) Hyperlipidemia (Acute) IBS (irritable bowel syndrome) (Acute) Lymphocytic colitis (Acute) Neuropathy (Acute) Osteoarthritis (Acute) Surgical History H/O: hysterectomy (Acute) History of tonsillectomy (Acute) History of tubal ligation (Acute) Family History Mother Arthritis Father Colon cancer Heart disease Social History (Updated 06/20/20 @ 12:[address] Trung Nieves MD) Smoking Status: Never smoker alcohol intake: never substance use type: does not use what type of physical activity do you participate in: none HPI HPI Surgical H&P: Yes HPI: JANETTE DELGADO, is a 54 F who presents to the office today for Telephone visit for evaluation for endoscopy. Patient has been noticing severe constipation and abdominal bloating. 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 In addition she had a tubular adenoma removed from her sigmoid colon. Her bowels have fluctuated fairly significantly over the last 3 months. In the past she needed Senokot and MiraLAX for her severe constipation but prior to that she was on Entocort for her loose stools.. Patient has been noticing some significant reflux and has been using [id number] medications for this. Her last upper scope was also in 2003 which was reportedly negative. Her father had rectal cancer and when he was in his 70s. It was metastatic at that time. ROS General General: Yes weight change; no appetite, fatigue, colon cancer, breast cancer or weakness HEENT HEENT: No difficulty swallowing, eye injury, eye surgery, swollen glands or hoarseness Endo Endocrine: No thyroid disease, diabetes mellitus, thyroid cancer, Hair loss, heat intolerance or cold intolerance Skin Skin: No rash or changing moles Breast Breast: No left breast lump, right breast lump, nipple discharge, breast pain, abnormal mammogram, abnormal US or breast enlargement Musc Musculoskeletal: Yes back problems, arthritis and joint pain; no rheumatoid arthritis or gout Cardio Cardiovascular: Yes palpitations; no murmur, pacemaker, heart disease, atrial fibrillation, high blood pressure, heart attack, heart stent, shortness of breat with exertion or chest pain Psych Psychiatric: Yes depression and anxiety; no hearing voices Resp Respiratory: No shortness of breath, No sleep apnea, No cough, No COPD, No asthma, No emphysema, No wheezing Gastro Gastrointestinal: No abdominal pain, Yes nausea or vomiting, No diarrhea, Yes constipation, Yes blood in stool, Yes acid reflux, Yes hemorrhoids, No ulcers, No gallbladder problem, No black,tarry stools Conrado Hematologic: No blood thinners, No blood disorders, No bleeding, No anemia, No blood clots Neuro Neurologic: No system reviewed and no additional complaints, except as docu, No as per HPI, No abnormal walking, No abnormal hearing, No abnormal movements, No abnormal speech, No behavioral changes, No burning sensations, No confusion, No seizure-like activity, No unsteadiness, No dizziness, No localized weakness, No frequent falls, No headache(s), No lack of coordination, No loss of vision, No memory loss, No numbness, No other visual disturbances, No radiating pain, No restless legs, No sensory deficit, No fainting, No tingling, No tremor(s), No weakness, No other Exam Chest Breast Palpation: No nipple discharge Cardio Heart Sounds: no murmurs Assessment & Plan Problems 1. Family history of rectal cancer Z80.0 2. Gastroesophageal reflux disease, unspecified whether esophagitis present K21.9 3. Abdominal bloating R14.0 4. Constipation, unspecified constipation type K59.00 Plan I have discussed the above with the patient. I have offered the patient colonoscopy As well as an EGD for evaluation. I have explained the risks/benefits of the procedure and described the procedure. I have discussed the risks with the patient, including but not limited to: infection, bleeding, perforation of the GI tract requiring emergency surgery, inability to complete the procedure, injury to any internal organs, complications of anesthesia, etc. - the patient understands and agrees to proceed. I have answered all the patient's questions to the patient's satisfaction and the patient has no further questions. The patient has been given instructions for the colon cleansing preparation. I spent 15 minutes talking to the patient. Plan Detail Goals Decrease pain Decrease spasm Decrease radiculopathy Barriers RA Lumbarization of S1 Coding Level of Care Code Attention Russ Diagnoses Family history of rectal cancer Z80.0 Gastroesophageal reflux disease, unspecified whether esophagitis present K21.9 ??Esophagitis presence: esophagitis presence not specified Abdominal bloating R14.0 Constipation, unspecified constipation type K59.00 ??Constipation type: unspecified constipation type Time Spent (min) 15 Comment Telephone visit COVID (Procedure Consent) Procedure Criteria Procedure Criteria: Yes Elective The surgeon/proceduralist and patient have discussed in detail the risk of exposure to and/or potential harm posed by the COVID-19 virus with having a surgery/procedure at this time versus the risk of? delaying the surgery/procedure. It is not possible to know either the risk of delaying the surgery or procedure or chance of getting an infection with perfect accuracy, but a joint decision was made between the patient and the surgeon/proceduralist ?to proceed at this time with the scheduled surgery/procedure as indicated on the consent form. I have re-examined the patient. There are no clinical changes since date of exam.
[2020-07-04 11:31] VITALS: BP 115/77; PULSE 76; RESP 14; TEMP 36.3; O2SAT 98; BMI 27.0
[2020-07-04] MEDS: Lactated Ringers 1,000 ML 100 ML IV (11:57)
--- NOTE | 2020-07-04 12:00 | EGD_PTH ---
PATIENT: JANETTE DELGADO LOC: EN U#:[id number] AGE/SX: 54/F ROOM: RE07/04/[address]: Dr. Trung Nieves MD : 1965 BED: DIS: 07/04/2020 SPEC #: [id number] RECD: 07/04/20 12:40 STATUS: KHUSHI AMAN #: [id number] BELLA: 07/04/20 12:[address]: Trung Nieves DEPT: SURGICAL PATHOLOGY RECD BY: Quiana Mckay ENTERED: 07/04/20 12:47 SP TYPE: EGD BIOPSY OT DR: Dr. Hayde Canas MD Tissues: A - Duodenum, NOS B - Gastric mucous membrane C - COLON BIOPSY Procedures: Surgery Specimen Level IV HEADER OPERATION: [place] [place] DIAGNOSIS: GERD, abdominal bloating, constipation TISSUE SUBMITTED: A - Duodenal biopsy, B - Antral biopsy for H. pylori and pathology, C - Random colon biopsies MICROSCOPIC DIAGNOSIS A. Duodenal biopsy: A fragment of duodenal mucosa, no pathologic diagnosis. B. Antral biopsy: Minimal gastritis. See microscopic description and comment. C. Colon, random biopsy: Fragments of colonic mucosa with pigment laden macrophages consistent with melanosis coli. SJ:rg 07/05/20 COMMENT B. The results of immunohistochemistry for Helicobacter pylori will be reported separately ([id number]). MICROSCOPIC DESCRIPTION Slides are reviewed. B. The specimen shows fragments of gastric mucosa with chronic inflammatory cell infiltrates in the lamina propria consisting of lymphocytes and plasma cells, consistent with minimal chronic gastritis. GROSS DESCRIPTION A - Received in fixative is one container labeled with the patient's name and designated duodenal biopsy. The specimen consists of one irregular fragment of light connolly soft tissue that measures 0.4 x 0.4 x 0.1 cm. The specimen is totally submitted in one cassette. B - Received in fixative is one container labeled with the patient's name and designated antral biopsy. The specimen consists of one irregular fragment of light connolly soft tissue that measures 0.7 x 0.2 x 0.1 cm. The specimen is totally submitted in one cassette. C - Received in fixative is one container labeled with the patient's name and designated random colon biopsy. The specimen consists of multiple irregular fragments of light connolly soft tissue that in aggregate measure 1.5 x 0.7 x 0.1 cm. The specimen is totally submitted in one cassette. / SJ:rg 07/04/20 TC:5 CPT: 22200 x3
--- NOTE | 2020-07-04 12:00 | IMM_PTH ---
PATIENT: JANETTE DELGADO LOC: EN U#:[id number] AGE/SX: 54/F ROOM: RE07/04/[address]: Dr. Trung Nieves MD : 1965 BED: DIS: 07/04/2020 SPEC #: [id number] RECD: 07/04/20 13:49 STATUS: KHUSHI REQ #: [id number] BELLA: 07/04/20 12:[address]: Trung Nieves DEPT: IMMUNOHISTOCHEMISTRY RECD BY: Park V[place]la ENTERED: 07/04/20 13:50 SP TYPE: IMMUNO OTHR DR: Dr. Hayde Canas MD Tissues: B - Stomach, NOS Procedures: H Pylori (initial) PHYSICIAN & INSTITUTION [place] [address] SPECIMEN INFORMATION: Tissue Source: B - Antral biopsy Clinical Info: GERD, abdominal bloating, constipation Specimen Number: [id number] CPT code: 87140 METHODOLOGY: Deparaffinized sections of prefer/formalin-fixed tissue or PAP/DQ stained slides are incubated with monoclonal/polyclonal antibodies/oligonucleotide probes. Localization is made via biotin free immunoperoxidase method. Appropriate controls are performed and reacted as expected. Results on target cell population are indicated in the following table: RESULTS: ANTIBODY / CLONE RESULT Block B H Pylori (polyclonal) negative These tests were developed and their performance characteristics determined by [facility]. They may not have been cleared or approved by the U.S. Food and Drug Administration. The FDA has determined that such clearance or approval is not necessary. INTERPRETATION: B. Antral biopsy: Negative for Helicobacter pylori organisms. SJ:daniella 07/05/20
--- NOTE | 2020-07-04 12:31 | OP.EGD_ITS ---
Patient Name: Mattie Roman Procedure Date: 07/04/2020 10:50 AM Date of : 1965 Age: 54 Procedure: Upper GI endoscopy Indications: Gastro-esophageal reflux disease, Abdominal distention, Abdominal bloating Providers: Trung Nieves MD Referring MD: Trung Nieves MD Medicines: See the Anesthesia note for documentation of the administered medications Patient Profile: This is a 54 year old female. Refer to note in patient chart for documentation of history and physical. Complications: No immediate complications. Procedure: Pre-Anesthesia Assessment: - Prior to the procedure, a History and Physical was performed, and patient medications and allergies were reviewed. The patient's tolerance of previous anesthesia was also reviewed. The risks and benefits of the procedure and the sedation options and risks were discussed with the patient. All questions were answered, and informed consent was obtained. Prior Anticoagulants: The patient has taken no previous anticoagulant or antiplatelet agents. ASA Grade Assessment: II - A patient with mild systemic disease. After reviewing the risks and benefits, the patient was deemed in satisfactory condition to undergo the procedure. After obtaining informed consent, the endoscope was passed under direct vision. Throughout the procedure, the patient's blood pressure, pulse, and oxygen saturations were monitored continuously. The gastroscope was introduced through the mouth, and advanced to the second part of duodenum. The upper GI endoscopy was accomplished without difficulty. The patient tolerated the procedure well. Scope In: 12:04:40 PM Scope Out: 12:09:34 PM Total Procedure Duration Time 0 hours 4 minutes 54 seconds Findings: The examined esophagus was normal. No biopsies or other specimens were collected for this exam. Localized mild inflammation characterized by erythema was found in the prepyloric region of the stomach. Biopsies were taken with a cold forceps for Helicobacter pylori testing. The examined duodenum was normal. Biopsies for histology were taken with a cold forceps for evaluation of celiac disease. Impression: - Normal esophagus. No specimens collected. - Gastritis. Biopsied. - Normal examined duodenum. Biopsied. Recommendation: - Await pathology results. - Repeat upper endoscopy at appointment to be scheduled for surveillance. - Telephone my office for pathology results in 1 week. - Continue present medications. Procedure Code(s): --- Professional --- 16963, Esophagogastroduodenoscopy, flexible, transoral; with biopsy, single or multiple Diagnosis Code(s): --- Professional --- K29.70, Gastritis, unspecified, without bleeding K21.9, Gastro-esophageal reflux disease without esophagitis R14.0, Abdominal distension (gaseous) CPT copyright 2017 [employer]. All rights reserved. The codes documented in this report are preliminary and upon metalizer review may be revised to meet current compliance requirements. MD Trung Coles MD 07/04/2020 12:31:48 PM This report has been signed electronically. Number of Addenda: 0 Note Initiated On: 07/04/2020 10:50 AM
--- NOTE | 2020-07-04 12:32 | OP.CCLET_ITS ---
07/04/2020 Hayde Canas MD [address] [place] [address] Re : Upper GI endoscopy procedure for Mattie Roman Dear Dr. Canas This procedure was performed on Saturday, July 04, 2020. My impressions and recommendations are as follows: Impressions : - Normal esophagus. No specimens collected. - Gastritis. Biopsied. - Normal examined duodenum. Biopsied. Recommendations : - Await pathology results. - Repeat upper endoscopy at appointment to be scheduled for surveillance. - Telephone my office for pathology results in 1 week. - Continue present medications. My findings are described in the full procedure note, which is enclosed. If I can be of further assistance, please feel free to contact me at Doctor phone number(s): , Fax: [phone], Work: . Sincerely, MD Trung Coles MD 07/04/2020 12:31:48 PM This report has been signed electronically.
[2020-07-04 12:33] VITALS: BP 115/77; BP 117/67; PULSE 69; RESP 16; TEMP 37.1; O2SAT 96
--- NOTE | 2020-07-04 12:34 | OP.COLON_ITS ---
Patient Name: Mattie Roman Procedure Date: 07/04/2020 12:09 PM Date of : 1965 Age: 54 Procedure: Colonoscopy Indications: Family history of anal canal cancer in a first-degree relative Providers: Trung Nieves MD Referring MD: Trung Nieves MD Medicines: See the Anesthesia note for documentation of the administered medications Patient Profile: This is a 54 year old female. Refer to note in patient chart for documentation of history and physical. Last Colonoscopy: 2002. Complications: No immediate complications. Procedure: Pre-Anesthesia Assessment: - Prior to the procedure, a History and Physical was performed, and patient medications and allergies were reviewed. The patient's tolerance of previous anesthesia was also reviewed. The risks and benefits of the procedure and the sedation options and risks were discussed with the patient. All questions were answered, and informed consent was obtained. Prior Anticoagulants: The patient has taken no previous anticoagulant or antiplatelet agents. ASA Grade Assessment: II - A patient with mild systemic disease. After reviewing the risks and benefits, the patient was deemed in satisfactory condition to undergo the procedure. After I obtained informed consent, the scope was passed under direct vision. Throughout the procedure, the patient's blood pressure, pulse, and oxygen saturations were monitored continuously. The colonoscope was introduced through the anus and advanced to the cecum, identified by appendiceal orifice and ileocecal valve. The colonoscopy was performed without difficulty. The patient tolerated the procedure well. The quality of the bowel preparation was adequate to identify polyps. Scope In: 12:11:16 PM Scope Withdrawal Time 0 hours 9 minutes 41 seconds Scope Out: 12:25:32 PM Total Procedure Duration Time 0 hours 14 minutes 16 seconds Findings: The colon (entire examined portion) appeared normal. Biopsies for histology were taken with a cold forceps from the entire colon for evaluation of microscopic colitis. The exam was otherwise without abnormality on direct and retroflexion views. Impression: - The entire examined colon is normal. Biopsied. - The examination was otherwise normal on direct and retroflexion views. Recommendation: - Discharge patient to home. - Resume previous diet. - Continue present medications. - Await pathology results. - Repeat colonoscopy in 5 years for surveillance. - Telephone my office for pathology results in 1 week. Procedure Code(s): --- Professional --- 62825, Colonoscopy, flexible; with biopsy, single or multiple Diagnosis Code(s): --- Professional --- Z80.0, Family history of malignant neoplasm of digestive organs CPT copyright 2017 [employer]. All rights reserved. The codes documented in this report are preliminary and upon tape recorder mechanic review may be revised to meet current compliance requirements. MD Trung Coles MD 07/04/2020 12:33:43 PM This report has been signed electronically. Number of Addenda: 0 Note Initiated On: 07/04/2020 12:09 PM
--- NOTE | 2020-07-04 12:34 | OP.CCLET_ITS ---
07/04/2020 Hayde Canas MD [address] [place] [address] Re : Colonoscopy procedure for Mattie Roman Dear Dr. Canas This procedure was performed on Saturday, July 04, 2020. My impressions and recommendations are as follows: Impressions : - The entire examined colon is normal. Biopsied. - The examination was otherwise normal on direct and retroflexion views. Recommendations : - Discharge patient to home. - Resume previous diet. - Continue present medications. - Await pathology results. - Repeat colonoscopy in 5 years for surveillance. - Telephone my office for pathology results in 1 week. My findings are described in the full procedure note, which is enclosed. If I can be of further assistance, please feel free to contact me at Doctor phone number(s): , Fax: [phone], Work: . Sincerely, MD Trung Coles MD 07/04/2020 12:33:43 PM This report has been signed electronically.
[2020-07-04 12:37] VITALS: BP 115/77; BP 125/71; PULSE 62; RESP 16; O2SAT 98
[2020-07-04 12:40] VITALS: BP 115/77; BP 118/60; PULSE 62; RESP 16; O2SAT 98
[2020-07-04 12:45] VITALS: BP 115/77; BP 117/67; PULSE 57; RESP 16; O2SAT 99
[2020-07-04 12:46] VITALS: BP 115/77; BP 126/60; PULSE 60; RESP 16; TEMP 37.1; O2SAT 97
== END 2020-07-04 15:11 | disposition home or self-care (01) ==
LOC: EN 11:04 → AC 11:05
PROVIDERS: PCP Internal Medicine Geriatric Medicine; Referring Provider Surgery; Visit Provider Surgery
PROC: 0DJD8ZZ Inspection of Lower Intestinal Tract, Via Natural or Artificial Opening Endoscopic (ICD-10-PCS; CPT 45378; principal; 2020-07-04 11:55)
DX: K59.00 Constipation, unspecified (principal); K29.70 Gastritis, unspecified, without bleeding; K58.9 Irritable bowel syndrome, unspecified; K21.9 Gastro-esophageal reflux disease without esophagitis; R14.0 Abdominal distension (gaseous); Z20.828 Contact with and (suspected) exposure to other viral communicable diseases; M06.9 Rheumatoid arthritis, unspecified; E78.5 Hyperlipidemia, unspecified; M79.7 Fibromyalgia; F32.9 Major depressive disorder, single episode, unspecified; F41.9 Anxiety disorder, unspecified; Z79.899 Other long term (current) drug therapy; Z78.0 Asymptomatic menopausal state; Z80.0 Family history of malignant neoplasm of digestive organs
CPT/HCPCS: 43239; 45380; 87426; 88305; 88342; C9803; J7120; J1610; J2405

== ENCOUNTER → 2021-04-03 14:32 | Outpatient (CLI) | payer BC, MEDICAID, SELFPAY ==
--- NOTE | 2021-04-03 14:39 | CT_ITS ---
EXAM: CT ABDOMEN AND PELVIS WITH INTRAVENOUS CONTRAST : 1965 CLINICAL INDICATION: ABD PAIN -- ABD PAIN AND BLOATING TECHNIQUE: Helically acquired images were obtained of the abdomen and pelvis with intravenous contrast. This CT exam was performed using one or more of the following dose reduction techniques: automated exposure control, adjustment of the mA and/or kV according to patient size, and/or use of iterative reconstruction technique. This report was created using [employer] report generation technology. CONTRAST: Oral T IV Readi-CAT T 100mL Isovue-300 COMPARISON: None. FINDINGS: LOWER THORAX: Unremarkable. Lung bases are clear. No cardiomegaly. No significant pericardial effusion. ABDOMEN: LIVER: Unremarkable. Homogeneous. No focal mass. GALLBLADDER AND BILE DUCTS: Unremarkable. No calcified gallstones. No gallbladder distention or wall edema. No intra- or extrahepatic biliary ductal dilation. PANCREAS: Unremarkable. No focal cystic or solid mass. SPLEEN: Unremarkable. Normal size without focal cystic or solid mass. ADRENALS: Unremarkable. No nodules. KIDNEYS AND URETERS: Unremarkable. Normal renal size and position. No hydronephrosis. STOMACH AND BOWEL: Unremarkable. No stomach or bowel distention. No focal inflammatory change. PELVIS: APPENDIX: No evidence of acute appendicitis. BLADDER: Unremarkable. REPRODUCTIVE: There is a 2.3 x 2.1 cm low-density mass in the right hemipelvis which may represent an ovarian cyst. The patient status post hysterectomy. ABDOMEN and PELVIS: INTRAPERITONEAL SPACE: Unremarkable. No ascites or other fluid collection. No free air. BONES/JOINTS: Unremarkable. No suspicious lytic or blastic abnormality. SOFT TISSUES: Unremarkable. No discrete abdominal or pelvic wall hernia. VASCULATURE: Unremarkable. Abdominal aorta is non-dilated. LYMPH NODES: Unremarkable. No enlarged lymph nodes. CT/Abdomen/Pelvis WITH Contrast IMPRESSION: Cystic mass in the right hemipelvis which may represent an ovarian cyst. No other acute abnormalities are seen in the abdomen or pelvis. Individualized dose optimization techniques were used for this CT. at 0314 Reported and signed by: Villa Gibbons MD Electronically Signed: Villa Gibbons MD at 3:13 EDT Tel , Service support ,
== END ==
PROVIDERS: PCP Internal Medicine; Referring Provider Internal Medicine; Visit Provider Internal Medicine
DX: R10.9 Unspecified abdominal pain (principal)
CPT/HCPCS: 74177; Q9967

== ENCOUNTER → 2021-04-10 10:48 | Outpatient (CLI) | payer BC, MEDICAID, SELFPAY ==
--- NOTE | 2021-04-10 10:51 | BI_ITS ---
MAMMOGRAPHY - BILATERAL SCREENING REASON FOR EXAM: Female, 55 years old. Routine annual screening examination. PERTINENT HISTORY: Non-contributory. TECHNIQUE: Digital bilateral breast mikie (3D mammographic acquisition) in the CC and MLO projections. 2-D mediolateral oblique (MLO) and craniocaudad (CC) views of both breasts were obtained. CAD: Full Field Digital Mammography with Computer Added Detection was performed. COMPARISON: Comparison is made with prior examination 04/28/2019 and 04/04/2011. FINDINGS: Breast Composition: The breasts are extremely dense, which lowers the sensitivity of mammography. There are no dominant masses or suspicious calcifications. No other significant abnormalities are identified. There has been no significant change since the prior study. BI/SCRN MAMM (CAD)W/MIKIE BILAT IMPRESSION: Stable bilateral screening mammogram. Yearly follow-up mammogram recommended. (A) ASSESSMENT CATEGORY: BIRADS Category 1: Negative. A letter regarding these results will be sent to the patient by the facility within 30 days. Approximately 10% of breast cancers are not detected by mammography. A normal mammogram should not delay biopsy of a clinically suspicious abnormality. [id number] Electronically Signed: Sergio Velasco MD at 13:09 EDT , Service support ,
--- NOTE | 2021-04-10 10:54 | BD_ITS ---
STUDY: DUAL ENERGY X-RAY ABSORPTIOMETRY / DXA REASON FOR EXAM: Female, 55 years old. Z780. The patient is postmenopausal. TECHNIQUE: Bone Mineral Density (BMD) measurements of lumbar spine and bilateral hips were obtained. COMPARISON: None. FINDINGS: Lumbar Spine (L1-L4): g/cm2 (1.021) / T-score (-0.2) / Z-score (0.9) Findings are suggestive of normal bone density with a low fracture risk. Left Femur Total: g/cm2 (0.725) / T-score (-1.8) / Z-score (-1.0) Left Femoral Neck: g/cm2 (0.571) / T-score (-2.5) / Z-score (-1.4) Right Femur Total: g/cm2 (0.726) / T-score (-1.8) / Z-score (-1.0) Right Femoral Neck: g/cm2 (0.601) / T-score (-2.2) / Z-score (-1.1) BD/Dexa Bone Density Study IMPRESSION: The patient is considered osteopenic as outlined below according to World Fili Organization (WHO) criteria with a high fracture risk. Reference Information: The T-score is the number of standard deviations above or below the standard which is normal for young adults at their peak bone mineral density. The World Health Organization (WHO) interprets the T-scores as follows: Above -1 Normal bone density Between -1 and -2.5 Osteopenia Equal to / or below -2.5 Osteoporosis As a practical clinical guideline, osteopenia may be graded as follows: Mild -1 through -1.5 Moderate -1.6 through -2.0 Severe -2.1 through -2.4 The Z-score is the number of standard deviations above or below age-matched controls. A Z-score of less than -1.5 would be considered abnormal. References: 1. NIH Osteoporosis and Related Bone Diseases www osteo.org 2. International Society for Clinical Densitometry www iscd.org 3. National Osteoporosis Foundation www nof.org Electronically Signed: Sergio Velasco MD at 11:43 EDT , Service support ,
== END ==
PROVIDERS: PCP Internal Medicine; Referring Provider Internal Medicine; Visit Provider Internal Medicine
DX: Z12.31 Encounter for screening mammogram for malignant neoplasm of breast (principal); Z78.0 Asymptomatic menopausal state; R10.9 Unspecified abdominal pain
CPT/HCPCS: 77063; 77067; 77080

== ENCOUNTER → 2021-05-01 12:26 | Outpatient (CLI) | payer BC, MEDICAID, SELFPAY ==
--- NOTE | 2021-05-01 12:28 | US_ITS ---
STUDY: ULTRASOUND OF THE FEMALE PELVIS - COMPLETE REASON FOR EXAM: Female, 55 years old. CYST TECHNIQUE: Transabdominal TECHNICAL QUALITY: Adequate. COMPARISON: None. FINDINGS: The uterus is surgically absent. The right ovary is visualized. The right ovary measures 3.1 x 3.1 x 2 cm. There is a 2.3 x 2 x 1.6 cm adnexal cyst. There is no visualized right adnexal mass or complex lesion. There is normal arterial and normal venous vascularity. The left ovary is visualized. The left ovary measures 2.6 x 1.4 x 1 cm. There is no left ovarian cyst or ovarian mass. There is no visualized left adnexal mass or complex lesion. There is normal arterial and normal venous vascularity. The pre void volume of the bladder was 481 ml. US/Pelvic (Non ) IMPRESSION: 2.3 cm right adnexal cyst. Hysterectomy. Electronically Signed: William Palacios MD at 5:02 EDT Tel , Service support ,
== END ==
PROVIDERS: PCP Internal Medicine; Referring Provider Internal Medicine; Visit Provider Internal Medicine
DX: N83.209 Unspecified ovarian cyst, unspecified side (principal)
CPT/HCPCS: 76856

== ENCOUNTER 2021-10-03 15:00 | Outpatient (CLI) | payer BC, MEDICAID, SELFPAY ==
[2021-10-03 15:52] LABS: Absolute Lymphocyte Count 1.44 X10^3/uL (0.83-4.51); Absolute Neutrophil Count 2.3 X10^3/uL (2.0-7.7); Basophil# 0.05 X10^3/uL; Basophil% 1.1 % (0-1); Eosinophil# 0.14 X10^3/uL; Eosinophils% 3.1 % (0-5); Hemoglobin 13.1 g/dL (12.0-15.0); Lymphocyte # 1.44 X10^3/ul (0.83-4.51); Lymphocyte % 32.1 % (19-41); Mean Corpuscular Volume 93.8 fL (81-99); Mean Platelet Vol. 10.6 fl (6.2-12.0); Monocyte# 0.51 X10^3/uL; Monocyte% 11.4 % (0-10); NRBC Flagged by Analyzer 0 % (0-5); Neutrophil # 2.34 X10^3/uL (2.7-7.7); Neutrophil % 52.1 % (47-70); Platelet Count 331 K/mm3 (150-450); RBC Distribution Width CV 12.5 % (11.6-14.6); RBC Distribution Width SD 43.6 fl (35.1-43.9); Red Blood Count 4.37 M/mm3 (4.2-5.4); White Blood Count 4.5 K/mm3 (4.4-11.0)
[2021-10-03 16:11] LABS: ALB/GLOB Ratio 1.2 RATIO (0.9-2.4); AST(SGOT) 12 U/L (15-37); Alanine Aminotransfer ALT/SGPT 27 U/L (13-56); Albumin, Serum 3.8 g/dL (3.2-5.0); Alkaline Phosphatase 105 U/L (45-117); Anion Gap 6 (5-15); BUN 14 mg/dL (7-18); BUN/Creat Ratio 21.9 RATIO (10-20); Calcium,Total 9.2 mg/dL (8.5-10.1); Chloride 103 mmol/L (98-107); Creatinine, Serum 0.64 mg/dL (0.55-1.02); EST Glomerular Filtration Rate 102 mL/min (>60); Est Glom Filt Rate - Afr Amer 123 mL/min (>60); Globulin 3.1 g/dL (2.2-4.2); Glucose 98 mg/dL (74-106); Potassium 4.1 mmol/L (3.5-5.1); Protein, Total 6.9 g/dL (6.4-8.2); Sodium Level 139 mmol/L (136-145)
== END 2021-10-03 23:59 | disposition home or self-care (01) ==
LOC: LABSPEC 15:02
PROVIDERS: PCP Internal Medicine; Visit Provider Internal Medicine
DX: E78.5 Hyperlipidemia, unspecified (principal)
CPT/HCPCS: 80053; 85025

== ENCOUNTER → 2021-11-02 | Outpatient (CLI) | payer BC, MEDICAID, SELFPAY ==
--- NOTE | 2021-11-02 14:27 | US_ITS ---
STUDY: ULTRASOUND OF THE FEMALE PELVIS - COMPLETE REASON FOR EXAM: Female, 56 years old. ovarian mass TECHNIQUE: Transabdominal COMPARISON: 05.01.21 FINDINGS: The uterus is surgically absent. The right ovary is visualized. The right ovary measures 1.4x4x1.7 cm. Cyst measures 21 mm. There is no visualized right adnexal mass or complex lesion. There is normal arterial and normal venous vascularity. There is nonvisualization of the left ovary due to overlying bowel gas. There is no fluid in the cul-de-sac. Urinary bladder volume is 166 cc. US/Pelvic (Non ) IMPRESSION: Simple right ovarian cyst. It is stable. No follow-up required. Electronically Signed: Bennett Gupta MD at 21:43 EDT ,
== END | disposition home or self-care (01) ==
PROVIDERS: PCP Internal Medicine; Referring Provider Internal Medicine; Visit Provider Internal Medicine
DX: N83.209 Unspecified ovarian cyst, unspecified side (principal)
CPT/HCPCS: 76856

== ENCOUNTER → 2022-04-02 | Outpatient (CLI) | payer BC, MEDICAID, SELFPAY ==
--- NOTE | 2022-04-02 12:41 | STRESSREP ---
Stress Test Report Date: 04-02-2020 Procedure: Exercise tolerance test/imaging study Indications: Dyspnea on exertion Consent: Per the patient Procedure: The patient exercised on a Marco A protocol for 7 minutes completing Stage II and 1 minute of Stage III achieving a peak heart rate of 170 bpm (106% predicted maximal heart rate) with a peak blood pressure 212/90 mmHg and a peak MET capacity of 9 METs. The baseline ECG demonstrated normal sinus rhythm. The peak exercise ECG demonstrated somatic/motion artifact with no obvious ECG changes. There were no cardiac dysrhythmias pretest, during exercise, or recovery. The functional capacity was considered good. There was no complaint of chest discomfort during exercise or recovery. The examination was discontinued secondary to dyspnea. Impression: 1. Technically adequate (percent predicted maximal heart rate greater than 85%) exercise tolerance test 2. Peak exercise ECG with somatic/motion artifact with no obvious ECG change 3. There were no cardiac dysrhythmias pretest, during exercise, or recovery 4. Blood pressure response: Resting hypertension-exaggerated response 5. Nuclear images pending Myocardial perfusion imaging study: Technique: The patient was injected with 11.8 mCi of technetium 99m Cardiolite and subsequently rest SPECT Cardiolite nuclear imaging was obtained in the horizontal long, vertical long, and short axis views. The patient exercised on a Marco A protocol for 7 minutes completing Stage II and 1 minute of Stage III achieving a peak heart rate of 170 bpm (106% predicted maximal heart rate) with a peak blood pressure 212/90 mmHg and a peak MET capacity of 9 METs. The patient was injected with 34.1 mCi of technetium 99m Cardiolite and subsequently stress SPECT Cardiolite nuclear imaging was obtained in the horizontal long, vertical long, and short axis views. A gated Cardiolite study at peak stress was obtained. Interpretation: Rest and stress SPECT Cardiolite nuclear imaging status post realignment, normalization, and attenuation correction, demonstrates the appearance of rest extracardiac/gastrointestinal tracer uptake and subtle diminished tracer uptake near the apical segments which status post stress appears to improve/normalize. There is end systolic thickening and brightening. The gated Cardiolite study demonstrates myocardial thickening and inward wall motion. The reported LVEF is 77%. Impression: 1. Rest and stress SPECT Cardiolite nuclear imaging demonstrate at rest the appearance of extracardiac/gastrointestinal tracer uptake near the inferior segments and subtle diminished tracer uptake near the apical segments which appears to improve/normalize following stress appearing compatible with the effects of the gastrointestinal/tracer uptake and shifting soft tissue attenuation/artifact with no myocardial perfusion changes considered diagnostic for associated stress-induced myocardial ischemia. 2. The gated Cardiolite study reports an LVEF of 77%. This note was generated with [employer] software. It may contain incorrect words, spelling, and punctuation that were not noted in checking the note before signing.
== END | disposition home or self-care (01) ==
LOC: CVS 06:25
PROVIDERS: PCP Internal Medicine; Referring Provider Internal Medicine; Visit Provider Internal Medicine
DX: R06.09 Other forms of dyspnea (principal)
CPT/HCPCS: 78452; 93017; A9500

== ENCOUNTER → 2022-04-16 | Outpatient (CLI) | payer BC, MEDICAID, SELFPAY ==
--- NOTE | 2022-04-16 11:50 | BI_ITS ---
MAMMOGRAPHY - BILATERAL SCREENING REASON FOR EXAM: Female, 56 years old. Routine annual screening examination. PERTINENT HISTORY: Non-contributory. TECHNIQUE: Digital bilateral breast mikie (3D mammographic acquisition) in the CC and MLO projections. 2-D mediolateral oblique (MLO) and craniocaudad (CC) views of both breasts were obtained. CAD: Full Field Digital Mammography with Computer Added Detection was performed. COMPARISON: Comparison is made with prior study dated 04/10/2021 and 04/28/2019. FINDINGS: Breast Composition: The breasts are extremely dense, which lowers the sensitivity of mammography. There are no dominant masses or suspicious calcifications. Stable small benign appearing bilateral axillary lymph nodes. No other significant abnormalities are identified. There has been no significant change since the prior study. BI/SCRN MAMM (CAD)W/MIKIE BILAT IMPRESSION: Stable bilateral screening mammogram. Yearly follow-up mammogram recommended. (A) ASSESSMENT CATEGORY: BIRADS Category 2: Benign. A letter regarding these results will be sent to the patient by the facility within 30 days. Approximately 10% of breast cancers are not detected by mammography. A normal mammogram should not delay biopsy of a clinically suspicious abnormality. [id number] Electronically Signed: Sergio Velasco MD at 13:22 EDT ,
== END | disposition home or self-care (01) ==
LOC: OPBI 11:48
PROVIDERS: PCP Internal Medicine; Visit Provider Internal Medicine
DX: Z12.31 Encounter for screening mammogram for malignant neoplasm of breast (principal)
CPT/HCPCS: 77063; 77067

== ENCOUNTER → 2022-08-09 | Outpatient (CLI) | payer BC, MEDICAID, SELFPAY ==
[2022-08-09 11:28] LABS: Absolute Lymphocyte Count 1.49 X10^3/uL (0.83-4.51); Absolute Neutrophil Count 4.6 X10^3/uL (2.0-7.7); Basophil# 0.05 X10^3/uL; Basophil% 0.7 % (0-1); Eosinophil# 0.14 X10^3/uL; Hematocrit 43.7 % (37-47); Hemoglobin 13.9 g/dL (12.0-15.0); Lymphocyte # 1.49 X10^3/ul (0.83-4.51); Lymphocyte % 21.6 % (19-41); Mean Corp Hgb Conc 31.8 g/dL (32-36); Mean Corpuscular Hgb 30.4 pg (27.0-32.0); Mean Corpuscular Volume 95.6 fL (81-99); Mean Platelet Vol. 10.4 fl (6.2-12.0); Monocyte# 0.64 X10^3/uL; Monocyte% 9.3 % (0-10); NRBC Flagged by Analyzer 0 % (0-5); Neutrophil # 4.55 X10^3/uL (2.7-7.7); Neutrophil % 66.1 % (47-70); Platelet Count 349 K/mm3 (150-450); RBC Distribution Width CV 12.2 % (11.6-14.6); RBC Distribution Width SD 42.5 fl (35.1-43.9); Red Blood Count 4.57 M/mm3 (4.2-5.4); White Blood Count 6.9 K/mm3 (4.4-11.0)
[2022-08-09 11:54] LABS: ALB/GLOB Ratio 1.1 RATIO (0.9-2.4); AST(SGOT) 14 U/L (15-37); Alanine Aminotransfer ALT/SGPT 25 U/L (13-56); Albumin, Serum 3.9 g/dL (3.2-5.0); Alkaline Phosphatase 60 U/L (45-117); Amylase 48 U/L (25-115); Anion Gap 6 (5-15); BUN 10 mg/dL (7-18); BUN/Creat Ratio 15.3 RATIO (10-20); Calcium,Total 9.4 mg/dL (8.5-10.1); Chloride 104 mmol/L (98-107); Creatinine, Serum 0.66 mg/dL (0.55-1.02); EST Glomerular Filtration Rate 99 mL/min (>60); Est Glom Filt Rate - Afr Amer 119 mL/min (>60); Globulin 3.6 g/dL (2.2-4.2); Glucose 89 mg/dL (74-106); Lipase 103 U/L (73-393); Potassium 4.3 mmol/L (3.5-5.1); Protein, Total 7.5 g/dL (6.4-8.2); Sodium Level 141 mmol/L (136-145); Troponin-I HS 5 pg/mL (3.0-54.0)
== END | disposition home or self-care (01) ==
LOC: LABSPEC 11:18
PROVIDERS: PCP Internal Medicine; Referring Provider Internal Medicine; Visit Provider Internal Medicine
DX: R10.13 Epigastric pain (principal)
CPT/HCPCS: 80053; 82150; 83690; 84484; 85025

== ENCOUNTER → 2022-08-21 | Outpatient (CLI) | payer BC, MEDICAID, SELFPAY ==
--- NOTE | 2022-08-21 07:58 | US_ITS ---
STUDY: ABDOMINAL ULTRASOUND REASON FOR EXAM: Female, 57 years old. Epigastric pain, nausea and vomiting TECHNIQUE: Transabdominal ultrasound was performed with real-time and static dalton scale imaging. TECHNICAL QUALITY: Adequate. COMPARISON: Comparison is made with prior CT scan of the abdomen and pelvis dated 04/03/2021. FINDINGS: Liver: The liver measures 16.4 cm. There is normal echogenicity of the liver. The bile ducts are within normal limits. There is hepatic color flow. The direction of portal flow is hepatopetal. There is no demonstrated mass lesion. Gallbladder: Normal distended gallbladder. The gallbladder wall measures 2.3 mm. There is a negative sonographic Siddiqui''s sign. There is no pericholecystic fluid. There are no gallstones. Common Bile Duct (C.B.D.): The common bile duct measures 3 mm. Pancreas: Normal size of the head, body and tail of the pancreas. There is normal echogenicity of the pancreas. There is no demonstrated pancreatic mass or cyst. Spleen: Normal size of the spleen. The spleen measures 9.2 cm x 4.6 cm x 4.1 cm. Right Kidney: Normal size of the right kidney. The right kidney measures 10.9 cm x 5.1 cm x 5.9 cm. Normal renal cortex. The right cortex measures 2.1 cm. There is no demonstrated renal mass or cyst. There is no right hydronephrosis. Left Kidney: Normal size of the left kidney. The left kidney measures 10.9 cm x 4.7 cm x 5.8 cm. Normal renal cortex. The left cortex measures 1.7 cm. There is no demonstrated renal mass or cyst. There is no left hydronephrosis. Aorta: Unremarkable. I.V.C.: The IVC is patent. There is no ascites. US/Abdomen Complete IMPRESSION: Normal abdominal ultrasound examination. Electronically Signed: Sergio Velasco MD at 12:30 EST ,
== END | disposition home or self-care (01) ==
LOC: US 07:55
PROVIDERS: PCP Internal Medicine; Referring Provider Internal Medicine; Visit Provider Internal Medicine
DX: R10.13 Epigastric pain (principal); R11.2 Nausea with vomiting, unspecified
CPT/HCPCS: 76700

== ENCOUNTER → 2022-11-19 | Outpatient (REF) | payer SELFPAY | LOC: CVS 09:14 | PROVIDERS: PCP Internal Medicine; Referring Provider Internal Medicine; Visit Provider Internal Medicine | DX: R69 Illness, unspecified (principal) ==

== ENCOUNTER → 2022-12-21 | Outpatient (CLI) | payer BC, MEDICAID, SELFPAY ==
[2022-12-21 11:30] LABS: Hemoglobin A1c 5.8 % (3.8-5.6)
[2022-12-21 11:33] LABS: Microalbumin,Random Urine 21.7 mg/L (NO RANGE EST.); Microalbumin:Creatinine Ratio 24.9 mg/g CRE (<30 mg/g CRE)
[2022-12-21 12:12] LABS: Albumin, Serum 3.7 g/dL (3.2-5.0); BUN 16 mg/dL (7-18); BUN/Creat Ratio 29.4 RATIO (10-20); Creatinine, Serum 0.54 mg/dL (0.55-1.02); EST Glomerular Filtration Rate 122 mL/min (>60); Est Glom Filt Rate - Afr Amer 147 mL/min (>60); Glucose 93 mg/dL (74-106); Protein, Total 7.3 g/dL (6.4-8.2)
[2022-12-21 12:13] LABS: AST(SGOT) 14 U/L (15-37); Alanine Aminotransfer ALT/SGPT 26 U/L (13-56); Alkaline Phosphatase 45 U/L (45-117); Anion Gap 4 (5-15); CRP, High Sensitivity Cardiac 1.75 mg/L; Calcium,Total 9.1 mg/dL (8.5-10.1); Chloride 107 mmol/L (98-107); Cholesterol 192 mg/dL (200); Globulin 3.6 g/dL (2.2-4.2); High Density Lipoprotein 61 mg/dL; Sodium Level 140 mmol/L (136-145); Triglycerides 93 mg/dL; Very Low Density Lipoprotein 19 mg/dL (5-40)
[2022-12-23 08:59] LABS: Vitamin D,25 Hydroxy 80.6 ng/mL
== END | disposition home or self-care (01) ==
LOC: LAB 09:59
PROVIDERS: PCP Internal Medicine; Referring Provider Internal Medicine; Visit Provider Internal Medicine
DX: E78.5 Hyperlipidemia, unspecified (principal); R73.09 Other abnormal glucose; E55.9 Vitamin D deficiency, unspecified
CPT/HCPCS: 36415; 80053; 80061; 82043; 82306; 82570; 83036; 86141

== ENCOUNTER → 2023-04-29 | Outpatient (CLI) | payer BC, SELFPAY ==
--- NOTE | 2023-04-29 12:57 | US_ITS ---
STUDY: THYROID ULTRASOUND REASON FOR EXAM: Female, 57 years old. Thyroid nodule TECHNIQUE: Ultrasound evaluation of the thyroid was performed with real-time and static dalton-scale imaging. COMPARISON: None. FINDINGS: RIGHT LOBE: The right lobe of the thyroid gland measures 3.8 x 1.3 x 1.5 cm. There is a heterogeneous echotexture. There is a wider than tall well-circumscribed nodule within the superficial aspect of the right thyroid 0.7 x 0 0.2 cc with a history there is a small hypoechoic lobulated nodule measuring 0.5 x 0.3 x 0.4 cm. There appears to be hypoechoic with a hyperechoic center which may represent a lymph node. There are multiple small nodules throughout the right-sided thyroid which were measured and a cluster on image #[id number]. This is not not thought to represent a single nodule. LEFT LOBE: The left lobe of the thyroid gland measures 3.8 x 1.5 x 1.3 cm. There is a heterogeneous echotexture. There are numerous, too numerous to count small nodules throughout the left-sided thyroid. There is a superficial wider than tall hypoechoic nodule measuring 0.6 x 0.5 x 0.3 cm. A second measured nodule measures 0.4 x 0.3 x 0.3 cm. ISTHMUS: The isthmus measures 1.8 mm . The regional lymph nodes are normal. US/Thyroid IMPRESSION: Numerous nodules throughout both thyroid lobes. The measured nodules follow into a category of approximately TR 3 allowing for measuring technique. All the nodules are less than 1.5 cm. Recommend follow-up in 12 months to ensure stability. Electronically Signed: Addis Luna MD at 1:40 EDT ,
== END | disposition home or self-care (01) ==
LOC: US 12:54
PROVIDERS: PCP Internal Medicine; Referring Provider Internal Medicine; Visit Provider Internal Medicine
DX: E04.1 Nontoxic single thyroid nodule (principal)
CPT/HCPCS: 76536

== ENCOUNTER → 2024-06-23 | Outpatient (CLI) | payer OTHER, SELFPAY ==
--- NOTE | 2024-06-23 15:11 | US_ITS ---
EXAM: US SOFT TISSUES HEAD AND NECK, THYROID CLINICAL INDICATION: thyroid nodules TECHNIQUE: Greyscale and color doppler imaging was performed of the thyroid gland. COMPARISON: Thyroid ultrasound, 04/29/2023 FINDINGS: LEFT THYROID LOBE: The left thyroid lobe measures 4.1 x 1.5 x 1.4 cm. The left thyroid gland is heterogenous. In the left thyroid lobe, there are multiple cystic and spongiform-appearing nodules. The largest of these measures approximately 0.6 cm. Homogeneous echotexture with normal vascularity. RIGHT THYROID LOBE: In the right thyroid lobe, there are multiple subcentimeter cysts and/or spongiform nodules. There is a cluster of cysts and/or spongiform nodules measuring approximately 1 cm which may correlate with the previously demonstrated lesion. The right thyroid lobe measures 4.2 x 1.9 x 1.4 cm. The right thyroid gland is heterogenous. Homogeneous echotexture with normal vascularity. ISTHMUS: The thyroid isthmus measures 0.3 cm. No thyroid nodules are present. US/Thyroid IMPRESSION: There are multiple bilateral cystic and/or spongiform thyroid nodules, TR 1 lesions. No follow-up or FNA is recommended. Electronically Signed: Morgan Pearson DO at 22:59 EST ,
== END | disposition home or self-care (01) ==
LOC: US 15:09
PROVIDERS: PCP Internal Medicine; Referring Provider Internal Medicine; Visit Provider Internal Medicine
DX: E04.1 Nontoxic single thyroid nodule (principal)
CPT/HCPCS: 76536

== ENCOUNTER → 2024-11-02 | Outpatient (CLI) | payer OTHER, SELFPAY ==
--- NOTE | 2024-11-02 16:30 | BI_ITS ---
EXAM: SCRN MAMM (CAD)W/MIKIE BILAT DATE: 11/02/2024 CLINICAL HISTORY: F, Age 59 y/o , SCREENING No family history. BREAST CANCER RISK ASSESSMENT: Not assessed. TECHNIQUE: Bilateral screening digital breast tomosynthesis with 2D and 3D images. Computer aided detection. COMPARISON: Prior exam(s) dated April 16, 2022.. FINDINGS: TISSUE DENSITY: The breast tissue is heterogenously dense, which may obscure small masses. Bilateral Breast Mammographic Findings: No significant masses, calcifications or other abnormalities are identified. Stable fat containing bilateral axillary lymph nodes. No suspicious masses, areas of developing architectural distortion, or suspicious calcifications. There has been no significant interval change. BI/SCRN MAMM (CAD)W/MIKIE BILAT IMPRESSION: OVERALL FINAL ASSESSMENT: BIRADS 2 BENIGN FINDING RECOMMENDATION: Routine annual follow-up in 1 Year A letter with findings and recommendations will be mailed to the patient. Reading Location: [place] [id number]
--- NOTE | 2024-11-02 16:31 | BD_ITS ---
PROCEDURE: DEXA BONE DENSITY STUDY 11/02/2024 REASON FOR EXAM: OSTEOPENIA F, age 59 y/o . Postmenopausal. TECHNIQUE: DXA scan of the lumbar spine and bilateral hip, using make and model. REFERENCE LINKS: [facility] Adult Positions COMPARISON: 04/10/2021 FINDINGS: BMD and T-SCORES Lumbar spine: 1.064 g/cm2, T-Score 0.2 L1 through L4 Change from prior: Left femoral neck: 0.627 g/cm2, T-Score -2.0 Femoral neck comparison data not recommended for monitoring change. Left total hip: 0.809 g/cm2, T-Score -1.1 Change from prior: Right femoral neck: 0.657 g/cm2, T-Score -1.7 Femoral neck comparison data not recommended for monitoring change. Right total hip: 0.791 g/cm2, T-Score -1.2 Change from prior: Left 1/3 radius: g/cm2, T-Score Change from prior: Right 1/3 radius: g/cm2, T-Score Change from prior: Fracture Risk Calculation: FRAX (10-year Fracture Risk) Score: FRAX scores should never be reported in a patient with osteoporosis on DEXA or for any patient that is on bone medication. The patient meet the pharmacological treatment recommendations for prevention of osteoporosis BD/Dexa Bone Density Study IMPRESSION: OSTEOPENIA. Recommend follow-up as clinically warranted. Reading Location: [id number]
== END | disposition home or self-care (01) ==
PROVIDERS: PCP Internal Medicine; Referring Provider Internal Medicine; Visit Provider Internal Medicine
DX: Z12.31 Encounter for screening mammogram for malignant neoplasm of breast (principal); Z78.0 Asymptomatic menopausal state
CPT/HCPCS: 77063; 77067; 77080

== ENCOUNTER → 2025-03-18 | Outpatient (CLI) | payer OTHER, SELFPAY ==
[2025-03-18 12:58] LABS: Hematocrit 40.5 % (37-47); Hemoglobin 13.6 g/dL (12.0-15.0); Immature Granulocytes Count 0.030 X10^3/uL (0.0-0.0); Mean Corp Hgb Conc 33.6 g/dL (32-36); Mean Corpuscular Volume 90.8 fL (81-99); Mean Platelet Vol. 9.6 fl (6.2-12.0); NRBC Flagged by Analyzer 0 % (0-5); Platelet Count 369 K/mm3 (150-450); RBC Distribution Width CV 12.1 % (11.6-14.6); RBC Distribution Width SD 40.1 fl (35.1-43.9); Red Blood Count 4.46 M/mm3 (4.2-5.4); White Blood Count 5.5 K/mm3 (4.4-11.0)
[2025-03-18 13:32] LABS: AST(SGOT) 16 U/L (<=31); Alanine Aminotransfer ALT/SGPT 21 U/L (<=34); Albumin, Serum 4.4 g/dL (3.4-4.8); Alkaline Phosphatase 75 U/L (35-104); Anion Gap 13 (5-15); BUN 13 mg/dL (4-19); BUN/Creat Ratio 21.3 RATIO (10-20); Calcium,Total 10.0 mg/dL (7.6-11.0); Carbon Dioxide 22.9 mmol/L (21.0-32.0); Chloride 103 mmol/L (98-108); Cholesterol 260 mg/dL (<=200); Globulin 2.6 g/dL (2.2-4.2); Glucose 106 mg/dL (70-99); Low Density Lipoprotein Calc. 169 mg/dL; Potassium 4.0 mmol/L (3.3-5.1); Triglycerides 112 mg/dL; Very Low Density Lipoprotein 22 mg/dL (5-40); cholesterol:hdl ratio screen 3.77
[2025-03-18 14:16] LABS: Vitamin D,25 Hydroxy 36.5 ng/mL (30-100)
== END | disposition home or self-care (01) ==
LOC: BIMLAB 11:38
PROVIDERS: PCP Internal Medicine; Referring Provider Internal Medicine; Visit Provider Internal Medicine
DX: I10 Essential (primary) hypertension (principal); K21.9 Gastro-esophageal reflux disease without esophagitis; E55.9 Vitamin D deficiency, unspecified; M85.80 Other specified disorders of bone density and structure, unspecified site; R73.03 Prediabetes
CPT/HCPCS: 36415; 80053; 80061; 82306; 83036; 85025